=== PATIENT | male | born 1940 | race Hispanic/Latino ===

== ENCOUNTER 2018-02-02 17:32 | Inpatient (IN) | payer MEDICARE, BC ==
[2018-02-02 21:09] VITALS: BMI 22.1
--- NOTE | 2018-02-02 22:14 | CP.PCM.HP ---
History of Present Illness - History of Present Illness History of Present Illness: Jessicatim Narciso Chief Complaint: multiple falls The patient was seen and evaluated in the Rehab Unit HPI: The hx is obtained from the patient and after review of the medical records. The patient was transferred from the [facility] to the [facility] for Acute Rehabilitation. He is a 77 years old male with hx of Parkinson's Disease who was admitted to the [facility] on 01/31/18 because of frequent falls at home, approximately 20 falls in January, with his last fall he had right hip and back injuries. no fracture was found. He was evaluated by Neurology Dr Juares and his medication was reviewed and rearranged. 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 absent: Anorexia, Chills, Fever, Headache, Weakness - EENT Eyes: Requires Corrective Lenses. absent: Floaters, Itchy Eyes, Sees Flashes Ears: absent: Decreased Hearing, Ear Discharge, Ear Pain, Tinnitus Nose/Mouth/Throat: absent: Epistaxis, Nasal Congestion, Nasal Discharge, Sinus Pain, Sinus Pressure - Cardiovascular Cardiovascular: absent: Chest Pain, Dyspnea, Edema - Respiratory Respiratory: absent: Cough, Dyspnea, Wheezing, Stridor, Chest Congestion - Gastrointestinal Gastrointestinal: Constipation. absent: Abdominal Pain, Diarrhea, Nausea, Vomiting - Genitourinary Genitourinary: absent: Dysuria, Flank Pain, Hematuria, Urinary Frequency - Musculoskeletal Musculoskeletal: Back Pain Additional comments: Pain to both lower extrmities - Integumentary Integumentary: absent: Pruritus, Rash, Skin Ulcer, Sores, Striae, Swelling - Neurological Neurological: Dizziness. absent: Confusion, Focal Weakness, Headaches - Psychiatric Psychiatric: Anxiety. absent: Depression, Panic Attacks - Endocrine Endocrine: absent: Palpitations, Polydipsia, Polyphagia, Polyuria - Hematologic/Lymphatic Hematologic: absent: Easy Bleeding, Easy Bruising Past Patient History - Past Medical History & Family History Past Medical History?: Yes - Past Social History Smoking Status: Former Smoker Chewing Tobacco Use: No Cigar Use: No Alcohol: None Drugs: Denies Home Situation {Lives}: With Family - CARDIAC Hx Cardiac Disorders: Yes Other/Comment: CAD. Orthostatic hypotension - PULMONARY Hx Respiratory Disorders: No - NEUROLOGICAL Hx Parkinson's Disease: Yes - HEENT Hx HEENT Problems: No - RENAL Hx Chronic Kidney Disease: No - ENDOCRINE/METABOLIC Hx Endocrine Disorders: No - HEMATOLOGICAL/ONCOLOGICAL Hx Blood Disorders: No - INTEGUMENTARY Hx Dermatological Problems: No - MUSCULOSKELETAL/RHEUMATOLOGICAL Hx Spinal Stenosis: Yes - GASTROINTESTINAL Hx Gastrointestinal Disorders: No - GENITOURINARY/GYNECOLOGICAL Hx Genitourinary Disorders: Yes (BPH) - SURGICAL HISTORY Hx Abdominal Aortic Aneurysm Repair: Yes Hx Coronary Stent: Yes - ANESTHESIA Hx Anesthesia: Yes Hx Anesthesia Reactions: No Meds Allergies/Adverse Reactions: Allergies Allergy/AdvReac Type Severity Reaction Status Date / Time codeine Allergy Severe ANAPHYLAXIS Verified 02/02/18 22:05 omeprazole Allergy Severe ANAPHYLAXIS Verified 02/02/18 22:05 Physical Exam - Constitutional Appears: No Acute Distress - Head Exam Head Exam: ATRAUMATIC, NORMAL INSPECTION, NORMOCEPHALIC - Eye Exam Eye Exam: EOMI, Normal appearance Pupil Exam: NORMAL ACCOMODATION, PERRL - ENT Exam ENT Exam: Mucous Membranes Moist, Normal Exam, Normal External Ear Exam - Neck Exam Neck exam: Positive for: Full Rom, Normal Inspection. Negative for: Lymphadenopathy, Tenderness - Respiratory Exam Respiratory Exam: Clear to Auscultation Bilateral. absent: Rales, Rhonchi, Wheezes - Cardiovascular Exam Cardiovascular Exam: REGULAR RHYTHM, RRR, +S1, +S2 - GI/Abdominal Exam GI & Abdominal Exam: Normal Bowel Sounds, Soft. absent: Mass, Organomegaly, Tenderness - Rectal Exam Rectal Exam: Deferred - Extremities Exam Extremities exam: Positive for: normal inspection. Negative for: full ROM, pedal edema - Back Exam Back exam: NORMAL INSPECTION. absent: CVA tenderness (L), CVA tenderness (R) - Neurological Exam Neurological exam: Alert, CN II-XII Intact, Oriented x3, Reflexes Normal - Psychiatric Exam Psychiatric exam: Normal Affect, Normal Mood - Skin Skin Exam: Dry, Intact, Normal Color, Warm Results - Impressions Impression: EKG 01/31/18 NSR 61/min - Imaging and Cardiology Chest x-ray Status: Image reviewed by me, Report reviewed by me Additional comment: CXR 01/31/18 Chronic patchy infiltrate LLL Right Hip & Pelvis X Ray Status: Report reviewed by me Additional comment: No fracture Assessment & Plan - Assessment and Plan (Free Text) Assessment: #. Progressive Parkinson's Disease #. GERD #. CAD Plan: 77 years old male with hx of Parkinson's Disease, admitted to the [facility] on 01/31/18 because of frequent falls at home. He was evaluated by Neurology Dr Juares and is transferred to the [facility] for continued treatment.. #. Progressive Parkinson's Disease - Consult Dr Juares Neurology - Consult physiatry - Sinemet - Amantadine - CMP #. GERD - Pantoprazole #. CAD - ASA - lipid profile #. DVT prophylaxis with SCD and Lovenox - INR/PTT #. Code Status: Full - Date & Time Date: 02/02/18 Time: 22:14
[2018-02-03] MEDS: Carbidopa/Levodopa 50/200 CR PO SCH (06:02)
[2018-02-03 06:35] LABS: BASO # 0.1 K/uL (0.0-0.2); BASO % 1.1 % (0.0-2.0); EOS # 0.2 K/uL (0.0-0.7); EOS % 2.6 % (0.0-4.0); HEMOGLOBIN 12.6 g/dL (12.0-18.0); LYMPH # 1.2 K/uL (1.0-4.3); LYMPH % 18.5 % (20.0-40.0); MEAN CELL VOLUME 90.5 fl (80.0-94.0); MEAN CORPUSCULAR HEMOGLOBIN 29.1 pg (27.0-31.0); MEAN CORPUSCULAR HGB CONC 32.2 g/dL (33.0-37.0); MEAN PLATELET VOLUME 8.5 fl (7.2-11.7); MONO # 0.5 K/uL (0.0-0.8); MONO % 8.2 % (0.0-10.0); NEUT # 4.5 K/uL (1.8-7.0); NEUT % 69.6 % (50.0-75.0); RBC 4.33 Mil/uL (4.40-5.90); RED CELL DISTRIBUTION WIDTH 14.8 % (11.5-14.5); WHITE BLOOD COUNT 6.4 K/uL (4.8-10.8)
[2018-02-03 06:45] LABS: INR 1.1 (0.9-1.2); PARTIAL THROMBOPLASTIN TIME 27.8 Seconds (25.6-37.1); PROTHROMBIN TIME 12.5 Seconds (9.8-13.1)
[2018-02-03 06:47] LABS: ALB/GLOB RATIO 0.9 (1.0-2.1); ALBUMIN 3.5 g/dL (3.5-5.0)
[2018-02-03] MEDS: Enoxaparin 40 mg Syringe SC SCH (08:39)
[2018-02-03] MEDS: Pantoprazole 40 mg EC Tab PO SCH (08:41)
--- NOTE | 2018-02-03 16:58 | CP.PCM.CON ---
History of Present Illness - History of Present Illness History of Present Illness: Dr. Henry PMR consultation on Rafael Hightower, born 1940 who has been admitted to [facility] for acute inpatient rehabilitation following an admission at [facility] secondary to poor balance and safety. He has Parkinson's disease and has numerous falls. Luckily no serious injury to this point. He typically ambulates with a walker. His is reportedly dealing with lung CA. Son is in the building and helpful. He is right hand dominant Review of Systems - Constitutional Constitutional: absent: Anorexia, Chills - EENT Eyes: absent: Blind Spots Ears: absent: Ear Discharge, Ear Pain Nose/Mouth/Throat: absent: Nasal Congestion - Cardiovascular Cardiovascular: absent: Chest Pain - Respiratory Respiratory: absent: Dyspnea - Gastrointestinal Gastrointestinal: absent: Abdominal Pain - Musculoskeletal Musculoskeletal: absent: Joint Swelling - Integumentary Integumentary: absent: Wounds - Neurological Neurological: Numbness (bilateral feet. ), Frequent Falls. absent: Abnormal Movements, Abnormal Speech, Headaches, Vertigo - Psychiatric Psychiatric: absent: Anxiety Past Patient History - Past Medical History & Family History Past Medical History?: Yes - Past Social History Smoking Status: Former Smoker Alcohol: Occasional Home Situation {Lives}: With Family (no steps) - CARDIAC Hx Cardiac Disorders: Yes Hx Hypertension: Yes Other/Comment: CAD. Orthostatic hypotension - PULMONARY Hx Respiratory Disorders: No - NEUROLOGICAL Hx Parkinson's Disease: Yes - HEENT Hx HEENT Problems: No - RENAL Hx Chronic Kidney Disease: No - ENDOCRINE/METABOLIC Hx Endocrine Disorders: No - HEMATOLOGICAL/ONCOLOGICAL Hx Blood Disorders: No Hx Blood Transfusions: No - INTEGUMENTARY Hx Dermatological Problems: No Other/Comment: With multiple bruises from fall - MUSCULOSKELETAL/RHEUMATOLOGICAL Hx Falls: Yes (20 x last month) Hx Spinal Stenosis: Yes Other/Comment: Lumbosacral radiculopathy secondary to spinal stenosis - GASTROINTESTINAL Hx Gastrointestinal Disorders: No - GENITOURINARY/GYNECOLOGICAL Hx Genitourinary Disorders: Yes Hx Prostate Problems: Yes (BPH) - PSYCHIATRIC Hx Psychophysiologic Disorder: Yes Hx Anxiety: Yes Hx Substance Use: No - SURGICAL HISTORY Hx Abdominal Aortic Aneurysm Repair: Yes (3 stents) Hx Cholecystectomy: Yes Hx Coronary Stent: Yes Other/Comment: lumbosacral spinal surgery with hardware placement. - ANESTHESIA Hx Anesthesia: Yes Hx Anesthesia Reactions: No Meds Allergies/Adverse Reactions: Allergies Allergy/AdvReac Type Severity Reaction Status Date / Time codeine Allergy Severe ANAPHYLAXIS Verified 02/02/18 22:05 omeprazole Allergy Severe ANAPHYLAXIS Verified 02/02/18 22:05 omeprazole magnesium Allergy Severe ANAPHYLAXIS Uncoded 02/03/18 08:10 - Medications Medications: Current Medications Amantadine HCl (Amantadine 100 Mg Cap) 100 mg PO DAILY [facility] Last Admin: 02/03/18 08:40 Dose: 100 mg Aspirin (Aspirin Chewable) 81 mg PO DAILY [facility] Last Admin: 02/03/18 08:40 Dose: 81 mg Carbidopa/Levodopa (Sinemet Cr) 1 tab PO DAILY@0700 [facility] Last Admin: 02/03/18 06:02 Dose: 1 tab Carbidopa/Levodopa (Sinemet) 1 tab PO DAILY@1500 [facility] Last Admin: 02/03/18 15:10 Dose: 1 tab Carbidopa/Levodopa (Sinemet) 2 tab PO DAILY@1330 [facility] Last Admin: 02/03/18 13:18 Dose: 2 tab Enoxaparin Sodium (Lovenox) 40 mg SC DAILY [facility] PRN Reason: Protocol Last Admin: 02/03/18 08:39 Dose: 40 mg Lorazepam (Ativan) 2 mg PO HS PRN PRN Reason: Insomnia Last Admin: 02/02/18 22:57 Dose: 2 mg Pantoprazole Sodium (Protonix Ec Tab) 40 mg PO DAILY [facility] Last Admin: 02/03/18 08:41 Dose: 40 mg Quetiapine Fumarate (Seroquel) 25 mg PO HS PRN PRN Reason: Agitation Physical Exam - Constitutional Appears: Non-toxic, No Acute Distress - Head Exam Head Exam: ATRAUMATIC, NORMAL INSPECTION, NORMOCEPHALIC - Eye Exam Eye Exam: EOMI - ENT Exam ENT Exam: Mucous Membranes Moist - Respiratory Exam Respiratory Exam: NORMAL BREATHING PATTERN - Cardiovascular Exam Cardiovascular Exam: REGULAR RHYTHM - GI/Abdominal Exam GI & Abdominal Exam: Normal Bowel Sounds. absent: Distended - Extremities Exam Extremities exam: Negative for: calf tenderness, joint swelling - Psychiatric Exam Psychiatric exam: Normal Affect, Normal Mood - Skin Skin Exam: Warm Results - Vital Signs Recent Vital Signs: Last Vital Signs Temp 97.4 F L 02/03/18 10:00 Pulse 81 02/03/18 10:00 Resp 19 02/03/18 10:00 BP 109/71 02/03/18 10:00 Pulse Ox 98 02/03/18 10:00 - Labs Result Diagrams: 02/03/18 05:10 02/03/18 05:10 Labs: Laboratory Results - last 24 hr 02/03/18 02/03/18 02/03/18 05:10 05:10 05:10 WBC 6.4 RBC 4.33 L Hgb 12.6 Hct 39.2 MCV 90.5 MCH 29.1 MCHC 32.2 L RDW 14.8 H Plt Count 216 MPV 8.5 Neut % (Auto) 69.6 Lymph % (Auto) 18.5 L [place] % (Auto) 8.2 Eos % (Auto) 2.6 Baso % (Auto) 1.1 Neut # (Auto) 4.5 Lymph # (Auto) 1.2 [place] # (Auto) 0.5 Eos # (Auto) 0.2 Baso # (Auto) 0.1 PT 12.5 INR 1.1 APTT 27.8 Sodium 143 Potassium 4.2 Chloride 103 Carbon Dioxide 29 Anion Gap 15 BUN 30 H Creatinine 1.4 Est GFR ( Amer) 59 Est GFR (Non-Af Amer) 49 Random Glucose 87 Calcium 9.0 Total Bilirubin 0.7 AST 24 ALT 30 Alkaline Phosphatase 105 Total Protein 7.5 Albumin 3.5 Globulin 4.0 H Albumin/Globulin Ratio 0.9 L Triglycerides 155 H Cholesterol 147 LDL Cholesterol Direct 84 HDL Cholesterol 29 L Assessment & Plan - Assessment and Plan (Free Text) Assessment: PT/OT to continue to help increase functional independence Team conference for d/c planning Pain: controlled Vascular: no evidence of DVT GI: No evidence of constipation or diarrhea Patient is an excellent acute rehabilitation candidate and will have focused PT , OT and recreational therapy to help facilitate a safe and appropriate d/c plan Impairment code 03.2
--- NOTE | 2018-02-03 17:24 | PCM.OPOC ---
Physiatry Overall Plan of Care - Overall Plan of Care Estimated Length of Stay in Weeks: 3 Rehab Impairment: Mobility, Gait, Balance, Coordination Etiologic Diagnosis: Other (Parkinson's Disease exacerbation) - Anticipated Interventions Physical Therapy:: Yes Occupational Therapy:: Yes Speech Therapy:: No Recreational Therapy:: Yes - Therapy Goals Bed Mobility: Supervision Ambulation: Supervision Functional Positional Changes:: Supervision - Discharge Plan Identification of Barriers to Discharge: Home Situation Discharge Destination: Home
[2018-02-04] MEDS: Carbidopa/Levodopa 50/200 CR PO SCH (06:53)
[2018-02-04] MEDS: Pantoprazole 40 mg EC Tab PO SCH (08:46)
[2018-02-04] MEDS: Enoxaparin 40 mg Syringe SC SCH (08:46)
--- NOTE | 2018-02-04 10:29 | CP.PCM.CON ---
History of Present Illness - History of Present Illness History of Present Illness: Mr. 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 He has PSH: Coronary stents X3; Cholecystectomy; AAA repair; lumbosacrial spinal surgery; and SH: Formal Smoker ; denies Alcohol use, illegal drug use, and live at home with family. He was transferred from [facility] to the [facility] because of frequent falls at home, approximately 20 falls in January, with his last fall he had right hip and back injuries. no fracture was found. He was seen and evaluated by Neurologist (Dr Juares) and his medication was reviewed and rearranged. Review of Systems - Review of Systems All systems: reviewed and no additional remarkable complaints except Past Patient History - Past Medical History & Family History Past Medical History?: Yes - Past Social History Smoking Status: Former Smoker Alcohol: Occasional Home Situation {Lives}: With Family (no steps) - CARDIAC Hx Cardiac Disorders: Yes Hx Hypertension: Yes Other/Comment: CAD. Orthostatic hypotension - PULMONARY Hx Respiratory Disorders: No - NEUROLOGICAL Hx Parkinson's Disease: Yes - HEENT Hx HEENT Problems: No - RENAL Hx Chronic Kidney Disease: No - ENDOCRINE/METABOLIC Hx Endocrine Disorders: No - HEMATOLOGICAL/ONCOLOGICAL Hx Blood Disorders: No Hx Blood Transfusions: No - INTEGUMENTARY Hx Dermatological Problems: No Other/Comment: With multiple bruises from fall - MUSCULOSKELETAL/RHEUMATOLOGICAL Hx Falls: Yes (20 x last month) Hx Spinal Stenosis: Yes Other/Comment: Lumbosacral radiculopathy secondary to spinal stenosis - GASTROINTESTINAL Hx Gastrointestinal Disorders: No - GENITOURINARY/GYNECOLOGICAL Hx Genitourinary Disorders: Yes Hx Prostate Problems: Yes (BPH) - PSYCHIATRIC Hx Psychophysiologic Disorder: Yes Hx Anxiety: Yes Hx Substance Use: No - SURGICAL HISTORY Hx Abdominal Aortic Aneurysm Repair: Yes (3 stents) Hx Cholecystectomy: Yes Hx Coronary Stent: Yes Other/Comment: lumbosacral spinal surgery with hardware placement. - ANESTHESIA Hx Anesthesia: Yes Hx Anesthesia Reactions: No Meds Allergies/Adverse Reactions: Allergies Allergy/AdvReac Type Severity Reaction Status Date / Time codeine Allergy Severe ANAPHYLAXIS Verified 02/02/18 22:05 omeprazole Allergy Severe ANAPHYLAXIS Verified 02/02/18 22:05 omeprazole magnesium Allergy Severe ANAPHYLAXIS Uncoded 02/03/18 08:10 - Medications Medications: Current Medications Amantadine HCl (Amantadine 100 Mg Cap) 100 mg PO DAILY [facility] Last Admin: 02/04/18 08:45 Dose: 100 mg Aspirin (Aspirin Chewable) 81 mg PO DAILY [facility] Last Admin: 02/04/18 08:46 Dose: 81 mg Carbidopa/Levodopa (Sinemet Cr) 1 tab PO DAILY@0700 [facility] Last Admin: 02/04/18 06:53 Dose: 1 tab Carbidopa/Levodopa (Sinemet) 1 tab PO DAILY@1500 [facility] Last Admin: 02/03/18 15:10 Dose: 1 tab Carbidopa/Levodopa (Sinemet) 2 tab PO DAILY@1330 [facility] Last Admin: 02/03/18 13:18 Dose: 2 tab Enoxaparin Sodium (Lovenox) 40 mg SC DAILY [facility] PRN Reason: Protocol Last Admin: 02/04/18 08:46 Dose: 40 mg Lorazepam (Ativan) 2 mg PO HS PRN PRN Reason: Insomnia Stop: 02/10/18 17:00 Last Admin: 02/03/18 22:10 Dose: 2 mg Pantoprazole Sodium (Protonix Ec Tab) 40 mg PO DAILY [facility] Last Admin: 02/04/18 08:46 Dose: 40 mg Quetiapine Fumarate (Seroquel) 25 mg PO HS PRN PRN Reason: Agitation Physical Exam - Constitutional Appears: No Acute Distress - Head Exam Head Exam: NORMAL INSPECTION - Eye Exam Eye Exam: EOMI, Normal appearance, PERRL - ENT Exam ENT Exam: Mucous Membranes Moist, Normal Exam - Respiratory Exam Respiratory Exam: Clear to Auscultation Bilateral, NORMAL BREATHING PATTERN - Cardiovascular Exam Cardiovascular Exam: +S1, +S2 - GI/Abdominal Exam GI & Abdominal Exam: Normal Bowel Sounds, Soft. absent: Tenderness - Extremities Exam Extremities exam: Positive for: normal inspection - Neurological Exam Neurological exam: Abnormal Gait, Alert, CN II-XII Intact, Oriented x3 - Expanded Neurological Exam Expanded Patient oriented to: person, place, time Cranial nerves: EOM's Intact: Normal, Facial [place] w/Forehead Movement: Normal , Facial Sensation: Normal, Gag Reflex: Normal, Nystagmus: Normal Cerebellar Function: Finger to Nose: Abnormal Left, Abnormal Right (with noted trembling of the fingers) Sensory exam: Lower Extremity 2 Point Discrimination: Normal, Lower Extremity Light Touch: Normal, Lower Extremity Pin Prick: Normal, Lower Extremity Temperature: Normal, Upper Extremity 2 Point Discrimination: Normal, Upper Extremity Light Touch: Normal, Upper Extremity Pin Prick: Normal, Upper Extremity Temperature: Normal Neuro motor strength exam: Left Upper Extremity: 4, Right Upper Extremity: 4, Left Lower Extremity: 3, Right Lower Extremity: 3 Results - Vital Signs Recent Vital Signs: Last Vital Signs Temp 98.0 F 02/04/18 08:46 Pulse 80 02/04/18 08:46 Resp 91 H 02/04/18 08:46 BP 108/74 02/04/18 08:46 Pulse Ox 97 02/04/18 08:46 - Labs Result Diagrams: 02/03/18 05:10 02/03/18 05:10 Assessment & Plan (1) Parkinsons disease Assessment and Plan: This is a 77 years old male with hx of Parkinson's Disease, admitted to the [facility] on 01/31/18 because of frequent falls at home. He was evaluated by Neurology Dr Juares and is transferred to the [facility] for continued treatment. Case discussed with Dr. Juares, recommend the followin. Continue same dose of sinemet ( I tab at 0700, 2 tabs at 13:30 and 1 tab at 1500). 2. Continue same dose of Amantadine 100 mg PO daily 3. PT,OT eval and treat. 4. monitor CMP Status: Acute
[2018-02-05] MEDS: Carbidopa/Levodopa 50/200 CR PO SCH (06:50)
[2018-02-05] MEDS: Pantoprazole 40 mg EC Tab PO SCH (08:31)
[2018-02-05] MEDS: Enoxaparin 40 mg Syringe SC SCH (08:32)
--- NOTE | 2018-02-05 14:08 | CP.PCM.PN ---
Subjective - Date & Time of Evaluation Date of Evaluation: 02/05/18 Time of Evaluation: 11:20 - Subjective Subjective: Patient seen and examined. Continue to have orthostatic hypotension and unable to continue therapy because of it. Objective - Vital Signs/Intake and Output Vital Signs (last 24 hours): Temp Pulse Resp BP Pulse Ox 97.7 F 76 20 134/91 H 98 02/05/18 07:00 02/05/18 07:00 02/05/18 07:00 02/05/18 07:00 02/05/18 07:00 - Medications Medications: Current Medications Amantadine HCl (Amantadine 100 Mg Cap) 100 mg PO DAILY [facility] Last Admin: 02/05/18 08:32 Dose: 100 mg Aspirin (Aspirin Chewable) 81 mg PO DAILY [facility] Last Admin: 02/05/18 08:31 Dose: 81 mg Carbidopa/Levodopa (Sinemet Cr) 1 tab PO DAILY@0700 [facility] Last Admin: 02/05/18 06:50 Dose: 1 tab Carbidopa/Levodopa (Sinemet) 1 tab PO DAILY@1500 [facility] Last Admin: 02/04/18 15:16 Dose: 1 tab Carbidopa/Levodopa (Sinemet) 2 tab PO DAILY@1330 [facility] Last Admin: 02/05/18 12:49 Dose: 2 tab Enoxaparin Sodium (Lovenox) 40 mg SC DAILY [facility] PRN Reason: Protocol Last Admin: 02/05/18 08:32 Dose: 40 mg Lorazepam (Ativan) 2 mg PO HS PRN PRN Reason: Insomnia Stop: 02/10/18 17:00 Last Admin: 02/04/18 22:12 Dose: 2 mg Pantoprazole Sodium (Protonix Ec Tab) 40 mg PO DAILY [facility] Last Admin: 02/05/18 08:31 Dose: 40 mg Quetiapine Fumarate (Seroquel) 25 mg PO HS PRN PRN Reason: Agitation - Labs Labs: 02/03/18 05:10 02/03/18 05:10 PT 12.5 Seconds (9.8-13.1) 02/03/18 05:10 INR 1.1 (0.9-1.2) 02/03/18 05:10 APTT 27.8 Seconds (25.6-37.1) 02/03/18 05:10 - Constitutional Appears: No Acute Distress - Head Exam Head Exam: ATRAUMATIC - Eye Exam Eye Exam: absent: Scleral icterus - ENT Exam ENT Exam: Mucous Membranes Moist - Neck Exam Neck Exam: absent: Meningismus - Respiratory Exam Respiratory Exam: absent: Rales, Rhonchi, Wheezes, Respiratory Distress - Cardiovascular Exam Cardiovascular Exam: REGULAR RHYTHM, +S1, +S2 - GI/Abdominal Exam GI & Abdominal Exam: Soft. absent: Tenderness - Rectal Exam Rectal Exam: Deferred - Neurological Exam Neurological Exam: Alert, Oriented x3 - Psychiatric Exam Psychiatric exam: Normal Affect - Skin Skin Exam: Dry, Intact Assessment and Plan - Assessment and Plan (Free Text) Assessment: 77 yo male with history of Parkinson's Disease, admitted at [facility] on 01/31/18 because of frequent falls. He was transferred to [facility] and admitted at Acute Rehab for continuation of therapy. 1. Parkinson's Disease continue Sinemet and Amantadine Dr Juares on neuro consult 2. Orthostatic Hypotension maybe caused of frequent falls cardiology consult with Dr Singh may need Fludcortisone for orthostatic hypotension 3. CAD continue ASA 4. DVT prophylaxis continue Lovenox
--- NOTE | 2018-02-05 18:33 | CP.PCM.PN ---
Subjective - Date & Time of Evaluation Date of Evaluation: 02/05/18 Time of Evaluation: 18:30 - Subjective Subjective: Mr. Hightower was seen and examined at the bedside. He is alert, oriented in all spheres. He denies any headache, dizziness, still claims of lower extremities weakness. He is able to move all extremities spontaneously with no tremors noted in his extremities. According to staff, the patient has been hypotensive prior to therapy with orthostatic vital signs remains the same. Alexander stocking, gary wrap and abdominal binder applied by therapist and systolic blood pressure post therapy was 112 mm/ hg. Cardiology was consulted. There was no untoward events overnight. Objective - Vital Signs/Intake and Output Vital Signs (last 24 hours): Temp Pulse Resp BP Pulse Ox 97.7 F 76 20 134/91 H 98 02/05/18 07:00 02/05/18 07:00 02/05/18 07:00 02/05/18 07:00 02/05/18 07:00 - Medications Medications: Current Medications Amantadine HCl (Amantadine 100 Mg Cap) 100 mg PO DAILY [facility] Last Admin: 02/05/18 08:32 Dose: 100 mg Aspirin (Aspirin Chewable) 81 mg PO DAILY [facility] Last Admin: 02/05/18 08:31 Dose: 81 mg Carbidopa/Levodopa (Sinemet Cr) 1 tab PO DAILY@0700 [facility] Last Admin: 02/05/18 06:50 Dose: 1 tab Carbidopa/Levodopa (Sinemet) 1 tab PO DAILY@1500 [facility] Last Admin: 02/05/18 14:52 Dose: 1 tab Carbidopa/Levodopa (Sinemet) 2 tab PO DAILY@1330 [facility] Last Admin: 02/05/18 12:49 Dose: 2 tab Enoxaparin Sodium (Lovenox) 40 mg SC DAILY [facility] PRN Reason: Protocol Last Admin: 02/05/18 08:32 Dose: 40 mg Lorazepam (Ativan) 2 mg PO HS PRN PRN Reason: Insomnia Stop: 02/10/18 17:00 Last Admin: 02/04/18 22:12 Dose: 2 mg Pantoprazole Sodium (Protonix Ec Tab) 40 mg PO DAILY [facility] Last Admin: 02/05/18 08:31 Dose: 40 mg Quetiapine Fumarate (Seroquel) 25 mg PO HS PRN PRN Reason: Agitation - Labs Labs: 02/03/18 05:10 02/03/18 05:10 PT 12.5 Seconds (9.8-13.1) 02/03/18 05:10 INR 1.1 (0.9-1.2) 02/03/18 05:10 APTT 27.8 Seconds (25.6-37.1) 02/03/18 05:10 - Constitutional Appears: No Acute Distress - Head Exam Head Exam: NORMAL INSPECTION - Extremities Exam Extremities Exam: Full ROM - Neurological Exam Neurological Exam: Alert, Awake, CN II-XII Intact, Oriented x3 Neuro motor strength exam: Left Upper Extremity: 4, Right Upper Extremity: 4, Left Lower Extremity: 3, Right Lower Extremity: 3 Additional comments: Alert, oriented, follows commands with less tremors appreciated in his extremities. Assessment and Plan (1) Parkinsons disease Assessment & Plan: Case discussed with Dr. Womack, continue all current medical, physical, and occupational therapies. Recommend to follow any orders from cardiology. Status: Acute
[2018-02-06 06:21] LABS: HEMOGLOBIN 12.2 g/dL (12.0-18.0); MEAN CELL VOLUME 90.4 fl (80.0-94.0); MEAN CORPUSCULAR HEMOGLOBIN 29.9 pg (27.0-31.0); MEAN CORPUSCULAR HGB CONC 33.1 g/dL (33.0-37.0); RBC 4.08 Mil/uL (4.40-5.90); RED CELL DISTRIBUTION WIDTH 14.7 % (11.5-14.5); WHITE BLOOD COUNT 8.6 K/uL (4.8-10.8)
[2018-02-06] MEDS: Carbidopa/Levodopa 50/200 CR PO SCH (07:25)
[2018-02-06] MEDS: Enoxaparin 40 mg Syringe SC SCH (09:00)
[2018-02-06] MEDS: Pantoprazole 40 mg EC Tab PO SCH (09:01)
--- NOTE | 2018-02-06 09:14 | CP.PCM.CON ---
History of Present Illness - History of Present Illness History of Present Illness: this 77-year-old man admitted to the rehabilitation unit of this hospital displays significant orthostatic hypotension and this consultation was requested. The patient has a long history of Parkinson disease and admits to having low blood pressure recorded on multiple occasions. He denies any history of blackout but reports lightheadedness often. He denies any history of taking diuretics. Has no history of hypertension or diabetes or prior myocardial infarction or symptoms of congestive cardiac failure. The patient has been taking Sinemet for the treatment of his Parkinson's disease. Physical examination shows an elderly man who is alert and awake and coherent. He has fine tremors due to Parkinson's disease. His respiratory rate was 14 breaths per minute and his heart rate was 74 bpm and regular. His blood pressure lying down in bed was 96/60 mmHg which on sitting up was 80/60 mmHg and upon standing up was 64/40 mmHg. The patient complained of lightheadedness upon standing up. There was no fainting. His jugular venous pressure was not elevated and there was no edema hour his lower extremity. Pedal pulses were well felt. His extremities were warm and his nailbeds are pink. There was no central or peripheral cyanosis. There was no clubbing. The first and second heart sounds were normal. There was no murmur or gallop. There were no rales. His abdomen was soft liver and spleen are not palpable. His electric cardiogram showed sinus rhythm with left axis deviation but otherwise a normal pattern. His lab data was noted. his BUN which was 30 mg percent on january was 41 mg today. His electrolytes were normal. 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 (such as autonomic dysfunction associated with Parkinson disease.) I have recommended intravenous normal saline in at at [place] to expand his intravascular volume. I have instructed the nurses to avoid having patient stand up and exercise when his right systolic blood pressure drops below 90 mmHg. Sinemet may also contribute to orthostatic hypotension. Past Patient History - Past Medical History & Family History Past Medical History?: Yes - Past Social History Smoking Status: Former Smoker Alcohol: Occasional Home Situation {Lives}: With Family (no steps) - CARDIAC Hx Cardiac Disorders: Yes - PULMONARY Hx Respiratory Disorders: No - NEUROLOGICAL Hx Parkinson's Disease: Yes - HEENT Hx HEENT Problems: No - RENAL Hx Chronic Kidney Disease: No - ENDOCRINE/METABOLIC Hx Endocrine Disorders: No - HEMATOLOGICAL/ONCOLOGICAL Hx Blood Disorders: No Hx Blood Transfusions: No - INTEGUMENTARY Hx Dermatological Problems: No Other/Comment: With multiple bruises from fall - MUSCULOSKELETAL/RHEUMATOLOGICAL Hx Falls: Yes (20 x last month) Hx Spinal Stenosis: Yes Other/Comment: Lumbosacral radiculopathy secondary to spinal stenosis - GASTROINTESTINAL Hx Gastrointestinal Disorders: No - GENITOURINARY/GYNECOLOGICAL Hx Genitourinary Disorders: Yes Hx Prostate Problems: Yes (BPH) - PSYCHIATRIC Hx Psychophysiologic Disorder: Yes Hx Anxiety: Yes Hx Substance Use: No - SURGICAL HISTORY Hx Abdominal Aortic Aneurysm Repair: Yes (3 stents) Hx Cholecystectomy: Yes Hx Coronary Stent: Yes Other/Comment: lumbosacral spinal surgery with hardware placement. - ANESTHESIA Hx Anesthesia: Yes Hx Anesthesia Reactions: No Meds Allergies/Adverse Reactions: Allergies Allergy/AdvReac Type Severity Reaction Status Date / Time codeine Allergy Severe ANAPHYLAXIS Verified 02/02/18 22:05 omeprazole Allergy Severe ANAPHYLAXIS Verified 02/02/18 22:05 omeprazole magnesium Allergy Severe ANAPHYLAXIS Uncoded 02/03/18 08:10 - Medications Medications: Current Medications Amantadine HCl (Amantadine 100 Mg Cap) 100 mg PO DAILY [facility] Last Admin: 02/06/18 09:01 Dose: 100 mg Aspirin (Aspirin Chewable) 81 mg PO DAILY [facility] Last Admin: 02/06/18 09:01 Dose: 81 mg Carbidopa/Levodopa (Sinemet Cr) 1 tab PO DAILY@0700 [facility] Last Admin: 02/06/18 07:25 Dose: 1 tab Carbidopa/Levodopa (Sinemet) 1 tab PO DAILY@1500 [facility] Last Admin: 02/05/18 14:52 Dose: 1 tab Carbidopa/Levodopa (Sinemet) 2 tab PO DAILY@1330 [facility] Last Admin: 02/05/18 12:49 Dose: 2 tab Enoxaparin Sodium (Lovenox) 40 mg SC DAILY [facility] PRN Reason: Protocol Last Admin: 02/06/18 09:00 Dose: 40 mg Sodium Chloride (Sodium Chloride 0.9%) 1,000 mls @ 50 mls/hr IV .Q20H [facility] Stop: 02/07/18 09:10 Lorazepam (Ativan) 1 mg PO HS PRN PRN Reason: Sleep Last Admin: 02/05/18 21:33 Dose: 1 mg Pantoprazole Sodium (Protonix Ec Tab) 40 mg PO DAILY [facility] Last Admin: 02/06/18 09:01 Dose: 40 mg Quetiapine Fumarate (Seroquel) 25 mg PO HS PRN PRN Reason: Agitation Results - Vital Signs Recent Vital Signs: Last Vital Signs Temp 97.0 F L 02/06/18 08:16 Pulse 89 02/06/18 08:16 Resp 19 02/06/18 08:16 BP 101/60 02/06/18 08:16 Pulse Ox 96 02/06/18 08:16 - Labs Result Diagrams: 02/06/18 05:40 02/06/18 05:40 Labs: Laboratory Results - last 24 hr 02/06/18 02/06/18 05:40 05:40 WBC 8.6 RBC 4.08 L Hgb 12.2 Hct 36.8 MCV 90.4 MCH 29.9 MCHC 33.1 RDW 14.7 H Plt Count 221 Sodium 141 Potassium 4.5 Chloride 103 Carbon Dioxide 25 Anion Gap 18 BUN 41 H Creatinine 1.4 Est GFR ( Amer) 59 Est GFR (Non-Af Amer) 49 Random Glucose 92 Calcium 9.0
[2018-02-06] MEDS: Sodium Chloride 0.9% 1,000 ML IV SCH (09:41)
--- NOTE | 2018-02-06 13:11 | PSY.TMCNF ---
Nursing - Vital Signs Vital Signs (Last 8 hours): Vital Signs 02/06/18 02/06/18 08:16 09:00 Temperature 97.0 F L 97.0 F L Pulse Rate 89 89 Respiratory 19 19 Rate Blood Pressure 101/60 101/60 O2 Sat by Pulse 96 Oximetry Pain: 0 - Precautions: Precautions: Fall Prevention, Cardiac/Pulmonary, Pressure Ulcer - Medications/Other Issues Comment: (+) Orthostatic Hypotension, Seen by Dr.J. Huggins , started on NSS at 500cc/hr, hold therapy today. - Consults Comment: Dr. Henry, Dr. Liz Huggins, Dr. Womack - Toileting Toileting: Minimal Assistance - Bladder Management Bladder Pattern: Normal Voiding Method: Toilet, Urinal Bladder Management: Supervision Frequency of Accidents: 0 - Bowel Management Bowel Pattern: Normal Bowel Management: Supervision Frequency of Accidents: 0 - Transfers Transfers: Minimal Assistance - ADL's ADL's: Moderate Assistance - Patient/Family Teaching Comments: Safety precautions, fall prevention due to Hypotension and Parkinson's - Goals/Time Frame Comments: Per multidisciplinary care plan and goals - Provider Provider: Teagan MOREN RN CRRN Physical Therapy - Bed Mobility Bed Mobility: Verbal Cues, Minimal Assistance - Transfers Wheelchair to Mat: Verbal Cues, Minimal Assistance Sit to Stand: Verbal Cues, Minimal Assistance Comment: vc for hand placement during t/f, martin stand to sit component; incr'd time and max vc/tc needed to complete safely - Ambulation Level of Assistance: Verbal Cues, Minimal Assistance Distance (ft.): 100 Assistive Devices: Rolling Walker Orthoses: w/c prop 10'x 1 w/ CG/min A. difficulty w/ tasks (multiple attempts for spouse to push pt instead of him propelling) Comment: x2 w/ w/c follow. Pt unsteady w/ flexed posture, B early foot flat, narrow HILARIA, shuffling gait, decr B step/stride length, decr'd trunk/pelvic rotation t/o gait cycle Pt w/ brief episodes of Festinating gait and bradykinesia during turns. improved quality of gait noted w/ vc for B heel strike, to stay inside frame of RW and to incr B step length. decr'd steadiness and safety noted w/ turns. PT noted moderate R hip crepitus during gait. R greater trochanter and jairo area are painful to touch - Stair Negotiation Stairs: Level of Assistance: Verbal Cues, Minimal Assistance Number of Stairs: 6 Handrails: Bilateral Stairs: Assistive Devices: Left Handrail, Right Handrail Comment: 4 in steps, step through pattern min A x1. unsteady - Standing Balance Static Stand: Minimal Assistance Dynamic Stand: Moderate Assistance Comment: w/ RW - Pain Pain (assessed during therapy session): 0 - Insight/Carryover Insight/Carryover: Fair - Patient/Family Education Comment: dx related topics, rehab goals, benefits of being OOB, posture, DBE, POC, fxnl mob, balance, benefit of compression, cardiac prec, safety, DME - Assessment/Plan Assessment: 77 yo male admitted to [facility] acute rehab s/p PD Exac. Pt w/ multiple recent falls and presents w/ BLE pain and impaired strength, balance, sensation , activity tolerance, safety awareness, safety and fxnl mob. Skilled PT indicated to address deficits. Pt w/ chronic hx of orthostatic hypotension. Pt displayed improved BP w/ BLE acewrap applied to lower legs on top of TEDS and abdominal binder. Cont'd use recommended to determine effectiveness. - Goals Timeframe: 3 weeks Goals: asc/desc 1 flight -8 in steps w/ 2 HR, mod I step through pattern w/ stable BP. RW 300' mod I w/ stable BP. sit to stand mod I. SPT mod I. bed mob mod I - Provider License Number: [id number] Occupational Therapy - Arousal/Attention/Orientation Patient Orientation: Person, Place, Time, Appropriate to Age, Appropriate to Situation - ADL/IADL Self Feeding: Set-up Help Grooming: Supervision, Set-up Help Dressing-Upper Extremity: Minimal Assistance Dressing-Lower Extremity: Minimal Assistance Comment: pt reports his assists him with ub dressing particularly with donning shirt - Sitting Balance Static Sitting: Independent with upper extremity support Dynamic Sitting: Requires supervision - Transfers Wheelchair to Bed Transfers: Minimal Assistance Toilet Transfers: Minimal Assistance - Wheelchair Management Level of Assistance: Minimal Assistance Distance (ft.): 50 - Upper Extremity Status Right Upper Extremity Comment: WFL Left Upper Extremity Comment: WFL - Pain Pain (assessed during therapy session): 0 - Insight/Carryover Insight/Carryover: Fair - Patient/Family Education Comment: dx related topics, rehab goals, benefits of being OOB, posture, DBE, POC, fxnl mob, balance, benefit of compression, cardiac prec, safety, DME - Assessment/Plan Assessment: 77 yo male admitted to [facility] acute rehab s/p PD Exac. Pt w/ multiple recent falls and presents w/ BLE pain and impaired strength, balance, sensation , activity tolerance, safety awareness, safety and fxnl mob. Skilled PT indicated to address deficits. Pt w/ chronic hx of orthostatic hypotension. Pt displayed improved BP w/ BLE acewrap applied to lower legs on top of TEDS and abdominal binder. Cont'd use recommended to determine effectiveness. - Goals Timeframe: 3 weeks Goals: asc/desc 1 flight -8 in steps w/ 2 HR, mod I step through pattern w/ stable BP. RW 300' mod I w/ stable BP. sit to stand mod I. SPT mod I. bed mob mod I - Provider Therapist: ISA Rios/[facility] - Consult Information Patient on Program: Yes Medical Diagnosis: exacerbation of Parkinson disease Treatment Diagnosis: -moderate voice deficits - Assessment Speech/Articulation Impairment: Moderate - Plan Assessment: 77 yo male admitted to [facility] acute rehab s/p PD Exac. Pt w/ multiple recent falls and presents w/ BLE pain and impaired strength, balance, sensation , activity tolerance, safety awareness, safety and fxnl mob. Skilled PT indicated to address deficits. Pt w/ chronic hx of orthostatic hypotension. Pt displayed improved BP w/ BLE acewrap applied to lower legs on top of TEDS and abdominal binder. Cont'd use recommended to determine effectiveness. - Provider Therapist: Trisha Carrizales License Number: [id number] Recreational Therapy - Participation Participation: Participates in Individual and/or Group Sessions - Attendance Attendance: 3-5 times per week - Activities Leisure Activities: Cards and Games - Socialization Level of Socialization: Initiates/interacts freely with care givers and peer - Diversional Time Diversional Time: likes to play cards, watch television - Assessment Assessment/Plan: 77 yo male admitted to [facility] acute rehab s/p PD Exac. Pt w/ multiple recent falls and presents w/ BLE pain and impaired strength, balance, sensation, activity tolerance, safety awareness, safety and fxnl mob. Skilled PT indicated to address deficits. Pt w/ chronic hx of orthostatic hypotension. Pt displayed improved BP w/ BLE acewrap applied to lower legs on top of TEDS and abdominal binder. Cont'd use recommended to determine effectiveness. - Provider Therapist: Gill lAba, [employer] CHEMIST #[id number] Nutrition - Current Diet Current Diet/ Supplement/ Feedings: Regular ensure plus 8 ounces 2 per day vanila(700 kcal and 26 grams of protein) - Appetite Percent Meal Consumed: 50-74% - Comments Comments: Safety precautions, fall prevention due to Hypotension and Parkinson's - Assessment/Goals/Time Frame Assessment/Goals/Time Frame: (+) Orthostatic Hypotension, Seen by Dr.J. Huggins , started on NSS at 500cc/hr, hold therapy today. - Provider Provider: Veronica Bah RD Case Management - Discharge Plan Discharge Plan: Home with significant other/family Rehabilitation Plan - Treatment Plan Treatment Plan: Physical Therapy, Occupational Therapy, Speech, Dietary, Patient /Family Education - Discharge Plan Estimated Date of Discharge: 02/16/18 Discharge to: Home (Will extend a few days given problems with orthostasis)
--- NOTE | 2018-02-06 13:58 | CP.PCM.PN ---
Subjective - Date & Time of Evaluation Date of Evaluation: 02/06/18 Time of Evaluation: 13:57 - Subjective Subjective: Patient seen in the room with present no sob/cp had a decrease in BP on fluids now consider dustinf usually with low BP looking to extend stay a few more days given his medical issues that have curtailed therapies Objective - Vital Signs/Intake and Output Vital Signs (last 24 hours): Temp Pulse Resp BP Pulse Ox 97.0 F L 89 19 101/60 96 02/06/18 09:00 02/06/18 09:00 02/06/18 09:00 02/06/18 09:00 02/06/18 08:16 - Medications Medications: Current Medications Amantadine HCl (Amantadine 100 Mg Cap) 100 mg PO DAILY [facility] Last Admin: 02/06/18 09:01 Dose: 100 mg Aspirin (Aspirin Chewable) 81 mg PO DAILY [facility] Last Admin: 02/06/18 09:01 Dose: 81 mg Carbidopa/Levodopa (Sinemet Cr) 1 tab PO DAILY@0700 [facility] Last Admin: 02/06/18 07:25 Dose: 1 tab Carbidopa/Levodopa (Sinemet) 1 tab PO DAILY@1500 [facility] Last Admin: 02/05/18 14:52 Dose: 1 tab Carbidopa/Levodopa (Sinemet) 2 tab PO DAILY@1330 [facility] Last Admin: 02/06/18 12:43 Dose: 2 tab Enoxaparin Sodium (Lovenox) 40 mg SC DAILY [facility] PRN Reason: Protocol Last Admin: 02/06/18 09:00 Dose: 40 mg Sodium Chloride (Sodium Chloride 0.9%) 1,000 mls @ 50 mls/hr IV .Q20H [facility] Stop: 02/07/18 09:10 Last Admin: 02/06/18 09:41 Dose: 50 mls/hr Lorazepam (Ativan) 1 mg PO HS PRN PRN Reason: Sleep Last Admin: 02/05/18 21:33 Dose: 1 mg Pantoprazole Sodium (Protonix Ec Tab) 40 mg PO DAILY [facility] Last Admin: 02/06/18 09:01 Dose: 40 mg Quetiapine Fumarate (Seroquel) 25 mg PO HS PRN PRN Reason: Agitation - Labs Labs: 02/06/18 05:40 02/06/18 05:40 PT 12.5 Seconds (9.8-13.1) 02/03/18 05:10 INR 1.1 (0.9-1.2) 02/03/18 05:10 APTT 27.8 Seconds (25.6-37.1) 02/03/18 05:10
--- NOTE | 2018-02-06 17:44 | CP.PCM.PN ---
Subjective - Date & Time of Evaluation Date of Evaluation: 02/06/18 Time of Evaluation: 17:44 - Subjective Subjective: Mr. Hightower was seen and examined at the bedside. He is alert, oriented in all spheres. He denies any headache, dizziness, still claims of lower extremities weakness. He is able to move all extremities spontaneously with no tremors noted in his extremities. According to staff, the patient has been hypotensive standing position and blood pressure normalize with lying position on Alexander stocking, and BUn 43. He is currently receiving IVF for hydration purposes. He further claims of being hypotensive for most of his life.There was no untoward events overnight. Objective - Vital Signs/Intake and Output Vital Signs (last 24 hours): Temp Pulse Resp BP Pulse Ox 97.0 F L 89 19 101/60 96 02/06/18 09:00 02/06/18 09:00 02/06/18 09:00 02/06/18 09:00 02/06/18 08:16 - Medications Medications: Current Medications Amantadine HCl (Amantadine 100 Mg Cap) 100 mg PO DAILY [facility] Last Admin: 02/06/18 09:01 Dose: 100 mg Aspirin (Aspirin Chewable) 81 mg PO DAILY [facility] Last Admin: 02/06/18 09:01 Dose: 81 mg Carbidopa/Levodopa (Sinemet Cr) 1 tab PO DAILY@0700 [facility] Last Admin: 02/06/18 07:25 Dose: 1 tab Carbidopa/Levodopa (Sinemet) 1 tab PO DAILY@1500 [facility] Last Admin: 02/06/18 14:34 Dose: 1 tab Carbidopa/Levodopa (Sinemet) 2 tab PO DAILY@1330 [facility] Last Admin: 02/06/18 12:43 Dose: 2 tab Enoxaparin Sodium (Lovenox) 40 mg SC DAILY [facility] PRN Reason: Protocol Last Admin: 02/06/18 09:00 Dose: 40 mg Sodium Chloride (Sodium Chloride 0.9%) 1,000 mls @ 50 mls/hr IV .Q20H [facility] Stop: 02/07/18 09:10 Last Admin: 02/06/18 09:41 Dose: 50 mls/hr Lorazepam (Ativan) 1 mg PO HS PRN PRN Reason: Sleep Last Admin: 02/05/18 21:33 Dose: 1 mg Midodrine (Proamatine) 2.5 mg PO Q8 [facility] Pantoprazole Sodium (Protonix Ec Tab) 40 mg PO DAILY [facility] Last Admin: 02/06/18 09:01 Dose: 40 mg Quetiapine Fumarate (Seroquel) 25 mg PO HS PRN PRN Reason: Agitation - Labs Labs: 02/06/18 05:40 02/06/18 05:40 PT 12.5 Seconds (9.8-13.1) 02/03/18 05:10 INR 1.1 (0.9-1.2) 02/03/18 05:10 APTT 27.8 Seconds (25.6-37.1) 02/03/18 05:10 - Constitutional Appears: No Acute Distress - Head Exam Head Exam: NORMAL INSPECTION - Neurological Exam Neurological Exam: Alert, Awake, Oriented x3 Neuro motor strength exam: Left Upper Extremity: 5, Right Upper Extremity: 5, Left Lower Extremity: 3, Right Lower Extremity: 3 Additional comments: Neurological unchanged from previous examination. Assessment and Plan (1) Parkinsons disease Assessment & Plan: Case discussed with Dr. Womack, continue all current medical, physical, and occupational therapies. Recommend midodrine 2.5 mg PO Q 8 hours to alleviate hypotension which maybe due to side effects of sinemet and amantadine. Status: Acute
[2018-02-07] MEDS: Sodium Chloride 0.9% 1,000 ML IV SCH (05:15)
[2018-02-07] MEDS: Carbidopa/Levodopa 50/200 CR PO SCH (07:10)
[2018-02-07] MEDS: Pantoprazole 40 mg EC Tab PO SCH (08:00)
[2018-02-07] MEDS: Enoxaparin 40 mg Syringe SC SCH (08:01)
--- NOTE | 2018-02-07 09:40 | CP.PCM.PN ---
Subjective - Date & Time of Evaluation Date of Evaluation: 02/07/18 Time of Evaluation: 08:40 - Subjective Subjective: Inspite of IV NS at 50ml/hr for last 22 hrs, pt still has orthostatic hypotnsion BP lying bed 114 /70 mm Hg Sitting at the edge of the bed 96/70 mm Hg Standing up 64/50 mm Hg Pt has dizzy feeling on standing up Pt may excercise sitting down Will start on Florinef Objective - Vital Signs/Intake and Output Vital Signs (last 24 hours): Temp Pulse Resp BP Pulse Ox 97.6 F 82 19 131/80 97 02/07/18 08:57 02/07/18 08:57 02/07/18 08:57 02/07/18 08:57 02/07/18 08:57 - Medications Medications: Current Medications Amantadine HCl (Amantadine 100 Mg Cap) 100 mg PO DAILY [facility] Last Admin: 02/07/18 08:00 Dose: 100 mg Aspirin (Aspirin Chewable) 81 mg PO DAILY [facility] Last Admin: 02/07/18 08:00 Dose: 81 mg Carbidopa/Levodopa (Sinemet Cr) 1 tab PO DAILY@0700 [facility] Last Admin: 02/07/18 07:10 Dose: 1 tab Carbidopa/Levodopa (Sinemet) 1 tab PO DAILY@1500 [facility] Last Admin: 02/06/18 14:34 Dose: 1 tab Carbidopa/Levodopa (Sinemet) 2 tab PO DAILY@1330 [facility] Last Admin: 02/06/18 12:43 Dose: 2 tab Enoxaparin Sodium (Lovenox) 40 mg SC DAILY [facility] PRN Reason: Protocol Last Admin: 02/07/18 08:01 Dose: 40 mg Fludrocortisone Acetate (Florinef) 0.1 mg PO BID [facility] Lorazepam (Ativan) 1 mg PO HS PRN PRN Reason: Sleep Last Admin: 02/06/18 21:45 Dose: 1 mg Midodrine (Proamatine) 2.5 mg PO Q8 [facility] Last Admin: 02/07/18 07:11 Dose: 2.5 mg Pantoprazole Sodium (Protonix Ec Tab) 40 mg PO DAILY [facility] Last Admin: 02/07/18 08:00 Dose: 40 mg Quetiapine Fumarate (Seroquel) 25 mg PO HS PRN PRN Reason: Agitation - Labs Labs: 02/06/18 05:40 02/06/18 05:40 PT 12.5 Seconds (9.8-13.1) 02/03/18 05:10 INR 1.1 (0.9-1.2) 02/03/18 05:10 APTT 27.8 Seconds (25.6-37.1) 02/03/18 05:10
--- NOTE | 2018-02-07 12:31 | CP.PCM.PN ---
Subjective - Date & Time of Evaluation Date of Evaluation: 02/07/18 Time of Evaluation: 11:00 - Subjective Subjective: Patient was seen and examined during physical therapy. He has had several episodes of orthostatic hypotension for which caridiology is seeing him. He has had some lightheadedness before for this but denies any today. Previously his PT has been held due to the hypotension but he is able to do it today. Otherwise the patient states that he is doing well and feeling stronger. No complaints of shortness of breath or chest pain. Objective - Vital Signs/Intake and Output Vital Signs (last 24 hours): Temp Pulse Resp BP Pulse Ox 97.6 F 82 19 131/80 97 02/07/18 08:57 02/07/18 08:57 02/07/18 08:57 02/07/18 08:57 02/07/18 08:57 - Medications Medications: Current Medications Amantadine HCl (Amantadine 100 Mg Cap) 100 mg PO DAILY [facility] Last Admin: 02/07/18 08:00 Dose: 100 mg Aspirin (Aspirin Chewable) 81 mg PO DAILY [facility] Last Admin: 02/07/18 08:00 Dose: 81 mg Carbidopa/Levodopa (Sinemet Cr) 1 tab PO DAILY@0700 [facility] Last Admin: 02/07/18 07:10 Dose: 1 tab Carbidopa/Levodopa (Sinemet) 1 tab PO DAILY@1500 [facility] Last Admin: 02/06/18 14:34 Dose: 1 tab Carbidopa/Levodopa (Sinemet) 2 tab PO DAILY@1330 [facility] Last Admin: 02/06/18 12:43 Dose: 2 tab Enoxaparin Sodium (Lovenox) 40 mg SC DAILY [facility] PRN Reason: Protocol Last Admin: 02/07/18 08:01 Dose: 40 mg Fludrocortisone Acetate (Florinef) 0.1 mg PO BID [facility] Lorazepam (Ativan) 1 mg PO HS PRN PRN Reason: Sleep Last Admin: 02/06/18 21:45 Dose: 1 mg Midodrine (Proamatine) 2.5 mg PO Q8 [facility] Last Admin: 02/07/18 07:11 Dose: 2.5 mg Pantoprazole Sodium (Protonix Ec Tab) 40 mg PO DAILY [facility] Last Admin: 02/07/18 08:00 Dose: 40 mg Quetiapine Fumarate (Seroquel) 25 mg PO HS PRN PRN Reason: Agitation - Labs Labs: 02/06/18 05:40 02/06/18 05:40 PT 12.5 Seconds (9.8-13.1) 02/03/18 05:10 INR 1.1 (0.9-1.2) 02/03/18 05:10 APTT 27.8 Seconds (25.6-37.1) 02/03/18 05:10 - Additional Findings Additional findings: Physical exam: Constitutional- cooperative, awake, alert Head- NCAT, PERRL Eye- PERRL, EOMI ENT- normal exam, MMM. Neck- normal inspection, supple, no JVD Respiratory- CTAB, no wheezes rales rhonchi Cardiovascular- RRR, +S1, +S2 no MRG GI/Abdominal- normal bowel sounds, soft, no mass, no hsm Skin- warm, dry Extremities Exam- normal capillary refill, normal inspection Neurological Exam- alert, awake, oriented Psych- normal mood, normal affect Assessment and Plan - Assessment and Plan (Free Text) Plan: ASSESSMENT/PLAN 77 yo male with history of Parkinson's Disease, admitted at [facility] on 01/31/18 because of frequent falls. He was transferred to [facility] and admitted at [facility] for continuation of therapy. 1. Parkinson's Disease continue Sinemet and Amantadine Dr Juares on neuro consult 2. Orthostatic Hypotension, likely from autonomic dysfunction from the Parkinson 's, also could be due to Sinemet maybe the cause of his frequent falls cardiology consult with Dr Singh Avoid standing up too quickly during physical therapy Florinef ordered by Dr. Huggins, 0.1 mg po BID Midodrine 2.5 mg po q 8 hours 3. CAD continue ASA 4. DVT prophylaxis continue Lovenox
--- NOTE | 2018-02-07 15:16 | CP.PCM.PN ---
Subjective - Date & Time of Evaluation Date of Evaluation: 02/07/18 Time of Evaluation: 15:15 - Subjective Subjective: Mr. Hightower was seen and examined at the bedside. He is alert, oriented in all spheres. He denies any headache, dizziness, still claims of lower extremities weakness. He is able to move all extremities spontaneously with no tremors noted in his extremities. He is able to feed himself independently.According to staff, the patient has been hypotensive standing position and blood pressure normalize with lying and sitting position on Alexander stocking. He further claims of being hypotensive for most of his life. There was no untoward events overnight. Objective - Vital Signs/Intake and Output Vital Signs (last 24 hours): Temp Pulse Resp BP Pulse Ox 97.6 F 82 19 131/80 97 02/07/18 08:57 02/07/18 08:57 02/07/18 08:57 02/07/18 08:57 02/07/18 08:57 - Medications Medications: Current Medications Amantadine HCl (Amantadine 100 Mg Cap) 100 mg PO DAILY [facility] Last Admin: 02/07/18 08:00 Dose: 100 mg Aspirin (Aspirin Chewable) 81 mg PO DAILY [facility] Last Admin: 02/07/18 08:00 Dose: 81 mg Carbidopa/Levodopa (Sinemet Cr) 1 tab PO DAILY@0700 [facility] Last Admin: 02/07/18 07:10 Dose: 1 tab Carbidopa/Levodopa (Sinemet) 1 tab PO DAILY@1500 [facility] Last Admin: 02/07/18 15:07 Dose: 1 tab Carbidopa/Levodopa (Sinemet) 2 tab PO DAILY@1330 [facility] Last Admin: 02/07/18 12:33 Dose: 2 tab Enoxaparin Sodium (Lovenox) 40 mg SC DAILY [facility] PRN Reason: Protocol Last Admin: 02/07/18 08:01 Dose: 40 mg Fludrocortisone Acetate (Florinef) 0.1 mg PO BID [facility] Lorazepam (Ativan) 1 mg PO PRN PRN Reason: Sleep Last Admin: 02/06/18 21:45 Dose: 1 mg Midodrine (Proamatine) 2.5 mg PO Q8 [facility] Last Admin: 02/07/18 14:54 Dose: 2.5 mg Pantoprazole Sodium (Protonix Ec Tab) 40 mg PO DAILY [facility] Last Admin: 02/07/18 08:00 Dose: 40 mg Quetiapine Fumarate (Seroquel) 25 mg PO HS PRN PRN Reason: Agitation - Labs Labs: 02/06/18 05:40 02/06/18 05:40 PT 12.5 Seconds (9.8-13.1) 02/03/18 05:10 INR 1.1 (0.9-1.2) 02/03/18 05:10 APTT 27.8 Seconds (25.6-37.1) 02/03/18 05:10 - Constitutional Appears: No Acute Distress - Head Exam Head Exam: NORMAL INSPECTION - Neurological Exam Neurological Exam: Alert, Awake, Oriented x3 Neuro motor strength exam: Left Upper Extremity: 5, Right Upper Extremity: 5, Left Lower Extremity: 3, Right Lower Extremity: 3 Additional comments: Neurological unchanged from previous examination. Assessment and Plan (1) Parkinsons disease Assessment & Plan: Case discussed with Dr. Womack, continue all current medical, physical, and occupational therapies. Recommend midodrine 2.5 mg PO Q 8 hours to alleviate hypotension which maybe due to side effects of sinemet and amantadine. If the patient does not have any untoward reactions from midodrine, will increase the dose to 5 mg PO Q 8 in couple days. Status: Acute
[2018-02-08] MEDS: Carbidopa/Levodopa 50/200 CR PO SCH (06:58)
[2018-02-08] MEDS: Enoxaparin 40 mg Syringe SC SCH (08:43)
[2018-02-08] MEDS: Pantoprazole 40 mg EC Tab PO SCH (08:45)
--- NOTE | 2018-02-08 10:38 | CP.PCM.PN ---
Subjective - Date & Time of Evaluation Date of Evaluation: 02/08/18 Time of Evaluation: 09:45 - Subjective Subjective: Pt seen in PT while having therapy in a chair Symptomfree while in a chair BP sitting doen: 92/60 mm Hg Standing up 66/40 mm Hg Pt feels lightheaded upon standing up Have added Midodrine 5 mg BID to Florinef Objective - Vital Signs/Intake and Output Vital Signs (last 24 hours): Temp Pulse Resp BP Pulse Ox 97.5 F L 82 19 133/84 98 02/08/18 08:34 02/08/18 08:34 02/08/18 08:34 02/08/18 08:34 02/08/18 08:34 - Medications Medications: Current Medications Amantadine HCl (Amantadine 100 Mg Cap) 100 mg PO DAILY [facility] Last Admin: 02/08/18 08:45 Dose: 100 mg Aspirin (Aspirin Chewable) 81 mg PO DAILY [facility] Last Admin: 02/08/18 08:45 Dose: 81 mg Carbidopa/Levodopa (Sinemet Cr) 1 tab PO DAILY@0700 [facility] Last Admin: 02/08/18 06:58 Dose: 1 tab Carbidopa/Levodopa (Sinemet) 1 tab PO DAILY@1500 [facility] Last Admin: 02/07/18 15:07 Dose: 1 tab Carbidopa/Levodopa (Sinemet) 2 tab PO DAILY@1330 [facility] Last Admin: 02/07/18 12:33 Dose: 2 tab Enoxaparin Sodium (Lovenox) 40 mg SC DAILY [facility] PRN Reason: Protocol Last Admin: 02/08/18 08:43 Dose: 40 mg Fludrocortisone Acetate (Florinef) 0.1 mg PO BID [facility] Last Admin: 02/08/18 08:43 Dose: 0.1 mg Lorazepam (Ativan) 1 mg PO HS PRN PRN Reason: Sleep Last Admin: 02/07/18 21:59 Dose: 1 mg Midodrine (Proamatine) 5 mg PO BID [facility] Pantoprazole Sodium (Protonix Ec Tab) 40 mg PO DAILY [facility] Last Admin: 02/08/18 08:45 Dose: 40 mg Quetiapine Fumarate (Seroquel) 25 mg PO HS PRN PRN Reason: Agitation - Labs Labs: 02/06/18 05:40 02/06/18 05:40 PT 12.5 Seconds (9.8-13.1) 02/03/18 05:10 INR 1.1 (0.9-1.2) 02/03/18 05:10 APTT 27.8 Seconds (25.6-37.1) 02/03/18 05:10
[2018-02-08 20:19] LABS: SQUAMOUS EPITHIAL < 1 /hpf (0-5); URINE AMORPHOUS SEDIMENT RARE /ul (<OCC); URINE BILIRUBIN NEGATIVE (NEGATIVE); URINE BLOOD NEGATIVE (NEGATIVE); URINE CLARITY CLOUDY (Clear); URINE COLOR YELLOW (YELLOW); URINE GLUCOSE (UA) NEG (Normal); URINE LEUKOCYTE ESTERASE TRACE Leu/uL (Negative); URINE PROTEIN 30 mg/dL (NEGATIVE)
[2018-02-09] MEDS: Carbidopa/Levodopa 50/200 CR PO SCH (06:20)
[2018-02-09 06:37] LABS: MEAN CELL VOLUME 89.9 fl (80.0-94.0); MEAN CORPUSCULAR HEMOGLOBIN 29.9 pg (27.0-31.0); MEAN CORPUSCULAR HGB CONC 33.2 g/dL (33.0-37.0); RBC 4.02 Mil/uL (4.40-5.90); RED CELL DISTRIBUTION WIDTH 14.5 % (11.5-14.5); WHITE BLOOD COUNT 7.9 K/uL (4.8-10.8)
[2018-02-09 06:45] LABS: BLOOD UREA NITROGEN 34 mg/dl (9-20); CALCIUM 9.1 mg/dL (8.4-10.2); GFR AFRICAN-AMERICAN > 60; GFR NON-AFRICAN AMERICAN 53
--- NOTE | 2018-02-09 08:11 | CP.PCM.PN ---
Subjective - Date & Time of Evaluation Date of Evaluation: 02/09/18 Time of Evaluation: 08:00 - Subjective Subjective: No new sypmtos Feels light headed on standing up BP lying down : 122/80 mm Hg Sitting up 102/60 mm Hg Standing up : 64/40 mm Hg with dizziness HR 80 BPM sitting up in bed No signs of CHF On 0.3 Mg of Flirinef and 5 mg of Midodrin BID Early next WK these doses might need to be increased if no improvement in orthostatic drop in BP Objective - Vital Signs/Intake and Output Vital Signs (last 24 hours): Temp Pulse Resp BP Pulse Ox 97.7 F 79 20 131/79 97 02/08/18 20:30 02/08/18 20:30 02/08/18 20:30 02/08/18 20:30 02/08/18 20:30 - Medications Medications: Current Medications Amantadine HCl (Amantadine 100 Mg Cap) 100 mg PO DAILY [facility] Last Admin: 02/08/18 08:45 Dose: 100 mg Aspirin (Aspirin Chewable) 81 mg PO DAILY [facility] Last Admin: 02/08/18 08:45 Dose: 81 mg Carbidopa/Levodopa (Sinemet Cr) 1 tab PO DAILY@0700 [facility] Last Admin: 02/09/18 06:20 Dose: 1 tab Carbidopa/Levodopa (Sinemet) 1 tab PO DAILY@1500 [facility] Last Admin: 02/08/18 15:39 Dose: 1 tab Carbidopa/Levodopa (Sinemet) 2 tab PO DAILY@1330 [facility] Last Admin: 02/08/18 13:31 Dose: 2 tab Docusate Sodium (Colace) 100 mg PO BID [facility] Last Admin: 02/08/18 17:04 Dose: 100 mg Enoxaparin Sodium (Lovenox) 40 mg SC DAILY [facility] PRN Reason: Protocol Last Admin: 02/08/18 08:43 Dose: 40 mg Fludrocortisone Acetate (Florinef) 0.1 mg PO TID [facility] Lorazepam (Ativan) 1 mg PO PRN PRN Reason: Sleep Last Admin: 02/08/18 21:34 Dose: 1 mg Midodrine (Proamatine) 5 mg PO BID [facility] Last Admin: 02/08/18 17:02 Dose: 5 mg Pantoprazole Sodium (Protonix Ec Tab) 40 mg PO DAILY [facility] Last Admin: 02/08/18 08:45 Dose: 40 mg Quetiapine Fumarate (Seroquel) 25 mg PO HS PRN PRN Reason: Agitation - Labs Labs: 02/09/18 05:20 02/09/18 05:20 PT 12.5 Seconds (9.8-13.1) 02/03/18 05:10 INR 1.1 (0.9-1.2) 02/03/18 05:10 APTT 27.8 Seconds (25.6-37.1) 02/03/18 05:10
[2018-02-09] MEDS: Enoxaparin 40 mg Syringe SC SCH (08:26)
[2018-02-09] MEDS: Pantoprazole 40 mg EC Tab PO SCH (08:26)
--- NOTE | 2018-02-09 11:29 | CP.PCM.PN ---
Subjective - Date & Time of Evaluation Date of Evaluation: 02/09/18 Time of Evaluation: 11:29 - Subjective Subjective: Mr. Hightower was seen and examined at the bedside. He is alert, oriented in all spheres. He denies any headache, dizziness, still claims of lower extremities weakness. He is able to move all extremities spontaneously with no tremors noted in his extremities. He is able to feed himself independently.According to staff, the patient has been hypotensive standing position and blood pressure normalize with lying and sitting position on Alexander stocking. His ua showed signs of infection, primary team aware with orders. Encourage patient to increase fluid intake. There was no untoward events overnight. Objective - Vital Signs/Intake and Output Vital Signs (last 24 hours): Temp Pulse Resp BP Pulse Ox 97.6 F 84 22 103/56 L 96 02/09/18 08:52 02/09/18 08:52 02/09/18 08:52 02/09/18 08:52 02/09/18 08:52 - Medications Medications: Current Medications Amantadine HCl (Amantadine 100 Mg Cap) 100 mg PO DAILY [facility] Last Admin: 02/09/18 08:25 Dose: 100 mg Aspirin (Aspirin Chewable) 81 mg PO DAILY [facility] Last Admin: 02/09/18 08:26 Dose: 81 mg Carbidopa/Levodopa (Sinemet Cr) 1 tab PO DAILY@0700 [facility] Last Admin: 02/09/18 06:20 Dose: 1 tab Carbidopa/Levodopa (Sinemet) 1 tab PO DAILY@1500 [facility] Last Admin: 02/08/18 15:39 Dose: 1 tab Carbidopa/Levodopa (Sinemet) 2 tab PO DAILY@1330 [facility] Last Admin: 02/08/18 13:31 Dose: 2 tab Docusate Sodium (Colace) 100 mg PO BID [facility] Last Admin: 02/09/18 08:26 Dose: 100 mg Enoxaparin Sodium (Lovenox) 40 mg SC DAILY [facility] PRN Reason: Protocol Last Admin: 02/09/18 08:26 Dose: 40 mg Fludrocortisone Acetate (Florinef) 0.1 mg PO TID [facility] Last Admin: 02/09/18 08:26 Dose: 0.1 mg Lorazepam (Ativan) 1 mg PO PRN PRN Reason: Sleep Last Admin: 02/08/18 21:34 Dose: 1 mg Midodrine (Proamatine) 5 mg PO BID [facility] Last Admin: 02/09/18 08:26 Dose: 5 mg Pantoprazole Sodium (Protonix Ec Tab) 40 mg PO DAILY [facility] Last Admin: 02/09/18 08:26 Dose: 40 mg Quetiapine Fumarate (Seroquel) 25 mg PO HS PRN PRN Reason: Agitation - Labs Labs: 02/09/18 05:20 02/09/18 05:20 PT 12.5 Seconds (9.8-13.1) 02/03/18 05:10 INR 1.1 (0.9-1.2) 02/03/18 05:10 APTT 27.8 Seconds (25.6-37.1) 02/03/18 05:10 - Constitutional Appears: No Acute Distress - Head Exam Head Exam: NORMAL INSPECTION - Neurological Exam Neurological Exam: Alert, Awake, Oriented x3 Neuro motor strength exam: Left Upper Extremity: 4, Right Upper Extremity: 4, Left Lower Extremity: 3, Right Lower Extremity: 3 Additional comments: Neurological unchanged from previous examination. Assessment and Plan (1) Parkinsons disease Assessment & Plan: Case discussed with Dr. Womack, continue all current medical, physical, and occupational therapies. Recommend to follow any orders from cardiology regarding hypotension. Recommend to increase po intake and treat any underlying infection. Status: Acute
--- NOTE | 2018-02-09 12:14 | CARD ---
APPROVED REPORT EKG Measurement Heart [id number] CT [id number] <Conclusion> Normal sinus rhythm Left axis deviation Abnormal ECG
--- NOTE | 2018-02-09 12:24 | CP.PCM.PN ---
Subjective - Date & Time of Evaluation Date of Evaluation: 02/09/18 Time of Evaluation: 10:30 - Subjective Subjective: Patient seen and examined. Still with orthostatic hypotension although asymptomatic. Already on Midodrine and Florinef as recommended by Dr Singh. Objective - Vital Signs/Intake and Output Vital Signs (last 24 hours): Temp Pulse Resp BP Pulse Ox 97.6 F 84 22 103/56 L 96 02/09/18 08:52 02/09/18 08:52 02/09/18 08:52 02/09/18 08:52 02/09/18 08:52 - Medications Medications: Current Medications Amantadine HCl (Amantadine 100 Mg Cap) 100 mg PO DAILY [facility] Last Admin: 02/09/18 08:25 Dose: 100 mg Aspirin (Aspirin Chewable) 81 mg PO DAILY [facility] Last Admin: 02/09/18 08:26 Dose: 81 mg Carbidopa/Levodopa (Sinemet Cr) 1 tab PO DAILY@0700 [facility] Last Admin: 02/09/18 06:20 Dose: 1 tab Carbidopa/Levodopa (Sinemet) 1 tab PO DAILY@1500 [facility] Last Admin: 02/08/18 15:39 Dose: 1 tab Carbidopa/Levodopa (Sinemet) 2 tab PO DAILY@1330 [facility] Last Admin: 02/08/18 13:31 Dose: 2 tab Docusate Sodium (Colace) 100 mg PO BID [facility] Last Admin: 02/09/18 08:26 Dose: 100 mg Enoxaparin Sodium (Lovenox) 40 mg SC DAILY [facility] PRN Reason: Protocol Last Admin: 02/09/18 08:26 Dose: 40 mg Fludrocortisone Acetate (Florinef) 0.1 mg PO TID [facility] Last Admin: 02/09/18 08:26 Dose: 0.1 mg Lorazepam (Ativan) 1 mg PO PRN PRN Reason: Sleep Last Admin: 02/08/18 21:34 Dose: 1 mg Midodrine (Proamatine) 5 mg PO BID [facility] Last Admin: 02/09/18 08:26 Dose: 5 mg Nitrofurantoin Macrocrystals (Macrobid) 100 mg PO Q12 [facility] PRN Reason: Protocol Pantoprazole Sodium (Protonix Ec Tab) 40 mg PO DAILY [facility] Last Admin: 02/09/18 08:26 Dose: 40 mg Quetiapine Fumarate (Seroquel) 25 mg PO HS PRN PRN Reason: Agitation - Labs Labs: 02/09/18 05:20 02/09/18 05:20 PT 12.5 Seconds (9.8-13.1) 02/03/18 05:10 INR 1.1 (0.9-1.2) 02/03/18 05:10 APTT 27.8 Seconds (25.6-37.1) 02/03/18 05:10 - Constitutional Appears: No Acute Distress - Head Exam Head Exam: ATRAUMATIC - Eye Exam Eye Exam: absent: Scleral icterus - ENT Exam ENT Exam: Mucous Membranes Moist - Neck Exam Neck Exam: absent: Meningismus - Respiratory Exam Respiratory Exam: absent: Rales, Rhonchi, Wheezes, Respiratory Distress - Cardiovascular Exam Cardiovascular Exam: REGULAR RHYTHM, +S1, +S2 - GI/Abdominal Exam GI & Abdominal Exam: Soft. absent: Tenderness - Rectal Exam Rectal Exam: Deferred - Neurological Exam Neurological Exam: Alert, Oriented x3 - Psychiatric Exam Psychiatric exam: Normal Affect - Skin Skin Exam: Dry, Intact Assessment and Plan - Assessment and Plan (Free Text) Assessment: 77 yo male with history of Parkinson's Disease, admitted at [facility] on 01/31/18 because of frequent falls. He was transferred to [facility] and admitted at [facility] for continuation of therapy. 1. Parkinson's Disease continue Sinemet and Amantadine Dr Juares on neuro consult 2. Orthostatic Hypotension maybe the cause of frequent falls cardiology consult with Dr Singh appreciated still with significant orthostatic hypotension inspite of Florinef and Midodrine Florinef increased to 0.1mg PO TID 3. CAD continue ASA 4. UTI urine culture Macrobid 100mg PO q 12hrs 5. DVT prophylaxis continue Lovenox
--- NOTE | 2018-02-09 13:06 | CP.PCM.PN ---
Subjective - Date & Time of Evaluation Date of Evaluation: 02/09/18 Time of Evaluation: 13:04 - Subjective Subjective: Patient seen in the room, doing ok, but still with persistent hypotension getting multiple medications and I discussed with Dr Huggins at length who is very aware of the situation and trying to resolve this problem continue with as much therapy as can be done given his medical constraints Objective - Vital Signs/Intake and Output Vital Signs (last 24 hours): Temp Pulse Resp BP Pulse Ox 97.6 F 84 22 103/56 L 96 02/09/18 08:52 02/09/18 08:52 02/09/18 08:52 02/09/18 08:52 02/09/18 08:52 - Medications Medications: Current Medications Amantadine HCl (Amantadine 100 Mg Cap) 100 mg PO DAILY [facility] Last Admin: 02/09/18 08:25 Dose: 100 mg Aspirin (Aspirin Chewable) 81 mg PO DAILY [facility] Last Admin: 02/09/18 08:26 Dose: 81 mg Carbidopa/Levodopa (Sinemet Cr) 1 tab PO DAILY@0700 [facility] Last Admin: 02/09/18 06:20 Dose: 1 tab Carbidopa/Levodopa (Sinemet) 1 tab PO DAILY@1500 [facility] Last Admin: 02/08/18 15:39 Dose: 1 tab Carbidopa/Levodopa (Sinemet) 2 tab PO DAILY@1330 [facility] Last Admin: 02/09/18 12:46 Dose: 2 tab Docusate Sodium (Colace) 100 mg PO BID [facility] Last Admin: 02/09/18 08:26 Dose: 100 mg Enoxaparin Sodium (Lovenox) 40 mg SC DAILY [facility] PRN Reason: Protocol Last Admin: 02/09/18 08:26 Dose: 40 mg Fludrocortisone Acetate (Florinef) 0.1 mg PO TID [facility] Last Admin: 02/09/18 12:46 Dose: 0.1 mg Lorazepam (Ativan) 1 mg PO PRN PRN Reason: Sleep Last Admin: 02/08/18 21:34 Dose: 1 mg Midodrine (Proamatine) 5 mg PO BID [facility] Last Admin: 02/09/18 08:26 Dose: 5 mg Nitrofurantoin Macrocrystals (Macrobid) 100 mg PO Q12 [facility] PRN Reason: Protocol Pantoprazole Sodium (Protonix Ec Tab) 40 mg PO DAILY [facility] Last Admin: 02/09/18 08:26 Dose: 40 mg Quetiapine Fumarate (Seroquel) 25 mg PO HS PRN PRN Reason: Agitation - Labs Labs: 02/09/18 05:20 02/09/18 05:20 PT 12.5 Seconds (9.8-13.1) 02/03/18 05:10 INR 1.1 (0.9-1.2) 02/03/18 05:10 APTT 27.8 Seconds (25.6-37.1) 02/03/18 05:10
[2018-02-10] MEDS: Carbidopa/Levodopa 50/200 CR PO SCH (06:27)
[2018-02-10] MEDS: Enoxaparin 40 mg Syringe SC SCH (08:43)
[2018-02-10] MEDS: Pantoprazole 40 mg EC Tab PO SCH (08:44)
--- NOTE | 2018-02-10 09:15 | CP.PCM.PN ---
Subjective - Date & Time of Evaluation Date of Evaluation: 02/10/18 Time of Evaluation: 09:00 - Subjective Subjective: CARDIOLOGY covering for Dr Hugigns Pt claims he feels slightly better he was up ambulating this AM and claims his BP standing was 130 systolic He is on Florinef 0.1mg TID MIdodrine 5mg BID Objective - Vital Signs/Intake and Output Vital Signs (last 24 hours): Temp Pulse Resp BP Pulse Ox 98.2 F 79 19 123/78 94 L 02/10/18 08:37 02/10/18 08:37 02/10/18 08:37 02/10/18 08:37 02/10/18 08:37 - Medications Medications: Current Medications Amantadine HCl (Amantadine 100 Mg Cap) 100 mg PO DAILY [facility] Last Admin: 02/10/18 08:43 Dose: 100 mg Aspirin (Aspirin Chewable) 81 mg PO DAILY [facility] Last Admin: 02/10/18 08:44 Dose: 81 mg Carbidopa/Levodopa (Sinemet Cr) 1 tab PO DAILY@0700 [facility] Last Admin: 02/10/18 06:27 Dose: 1 tab Carbidopa/Levodopa (Sinemet) 1 tab PO DAILY@1500 [facility] Last Admin: 02/09/18 15:39 Dose: 1 tab Carbidopa/Levodopa (Sinemet) 2 tab PO DAILY@1330 [facility] Last Admin: 02/09/18 12:46 Dose: 2 tab Docusate Sodium (Colace) 100 mg PO BID [facility] Last Admin: 02/10/18 08:44 Dose: 100 mg Enoxaparin Sodium (Lovenox) 40 mg SC DAILY [facility] PRN Reason: Protocol Last Admin: 02/10/18 08:43 Dose: 40 mg Fludrocortisone Acetate (Florinef) 0.1 mg PO TID [facility] Last Admin: 02/10/18 08:43 Dose: 0.1 mg Lorazepam (Ativan) 1 mg PO HS PRN PRN Reason: Sleep Last Admin: 02/09/18 21:28 Dose: 1 mg Midodrine (Proamatine) 5 mg PO BID [facility] Last Admin: 02/10/18 08:43 Dose: 5 mg Nitrofurantoin Macrocrystals (Macrobid) 100 mg PO Q12 [facility] PRN Reason: Protocol Last Admin: 02/10/18 08:43 Dose: 100 mg Pantoprazole Sodium (Protonix Ec Tab) 40 mg PO DAILY [facility] Last Admin: 02/10/18 08:44 Dose: 40 mg Quetiapine Fumarate (Seroquel) 25 mg PO HS PRN PRN Reason: Agitation - Labs Labs: 02/09/18 05:20 02/09/18 05:20 PT 12.5 Seconds (9.8-13.1) 02/03/18 05:10 INR 1.1 (0.9-1.2) 02/03/18 05:10 APTT 27.8 Seconds (25.6-37.1) 02/03/18 05:10 - Respiratory Exam Respiratory Exam: NORMAL BREATHING PATTERN - Cardiovascular Exam Cardiovascular Exam: REGULAR RHYTHM
--- NOTE | 2018-02-10 19:48 | CP.PCM.PN ---
Subjective - Date & Time of Evaluation Date of Evaluation: 02/10/18 Time of Evaluation: 13:30 - Subjective Subjective: no acute complaints at present Objective - Vital Signs/Intake and Output Vital Signs (last 24 hours): Temp Pulse Resp BP Pulse Ox 98.2 F 79 19 123/78 94 L 02/10/18 08:37 02/10/18 08:37 02/10/18 08:37 02/10/18 08:37 02/10/18 08:37 - Medications Medications: Current Medications Amantadine HCl (Amantadine 100 Mg Cap) 100 mg PO DAILY [facility] Last Admin: 02/10/18 08:43 Dose: 100 mg Aspirin (Aspirin Chewable) 81 mg PO DAILY [facility] Last Admin: 02/10/18 08:44 Dose: 81 mg Carbidopa/Levodopa (Sinemet Cr) 1 tab PO DAILY@0700 [facility] Last Admin: 02/10/18 06:27 Dose: 1 tab Carbidopa/Levodopa (Sinemet) 1 tab PO DAILY@1500 [facility] Last Admin: 02/10/18 15:05 Dose: 1 tab Carbidopa/Levodopa (Sinemet) 2 tab PO DAILY@1330 [facility] Last Admin: 02/10/18 12:27 Dose: 2 tab Docusate Sodium (Colace) 100 mg PO BID [facility] Last Admin: 02/10/18 17:04 Dose: 100 mg Enoxaparin Sodium (Lovenox) 40 mg SC DAILY [facility] PRN Reason: Protocol Fludrocortisone Acetate (Florinef) 0.1 mg PO TID [facility] Last Admin: 02/10/18 17:04 Dose: 0.1 mg Lorazepam (Ativan) 1 mg PO HS PRN PRN Reason: Sleep Last Admin: 02/09/18 21:28 Dose: 1 mg Midodrine (Proamatine) 5 mg PO BID [facility] Last Admin: 02/10/18 17:04 Dose: 5 mg Nitrofurantoin Macrocrystals (Macrobid) 100 mg PO Q12 [facility] PRN Reason: Protocol Last Admin: 02/10/18 08:43 Dose: 100 mg Pantoprazole Sodium (Protonix Ec Tab) 40 mg PO DAILY [facility] Last Admin: 02/10/18 08:44 Dose: 40 mg Quetiapine Fumarate (Seroquel) 25 mg PO HS PRN PRN Reason: Agitation - Labs Labs: 02/09/18 05:20 02/09/18 05:20 PT 12.5 Seconds (9.8-13.1) 02/03/18 05:10 INR 1.1 (0.9-1.2) 02/03/18 05:10 APTT 27.8 Seconds (25.6-37.1) 02/03/18 05:10 - Head Exam Head Exam: ATRAUMATIC, NORMAL INSPECTION, NORMOCEPHALIC - Eye Exam Eye Exam: EOMI, Normal appearance Pupil Exam: NORMAL ACCOMODATION, PERRL - ENT Exam ENT Exam: Mucous Membranes Moist, Normal Exam - Neck Exam Neck Exam: Full ROM, Normal Inspection - Respiratory Exam Respiratory Exam: Clear to Ausculation Bilateral, NORMAL BREATHING PATTERN - Cardiovascular Exam Cardiovascular Exam: REGULAR RHYTHM - GI/Abdominal Exam GI & Abdominal Exam: Soft, Normal Bowel Sounds - Rectal Exam Rectal Exam: NORMAL INSPECTION - Exam External exam: NORMAL EXTERNAL EXAM - Extremities Exam Extremities Exam: Full ROM, Normal Capillary Refill, Normal Inspection - Back Exam Back Exam: NORMAL INSPECTION - Neurological Exam Neurological Exam: Alert, Awake Additional comments: weakness - Psychiatric Exam Psychiatric exam: Normal Affect, Normal Mood - Skin Skin Exam: Dry, Normal Color Assessment and Plan (1) Parkinsons disease Assessment & Plan: plan for physical, occupational rec therapy covering for Dr santizo for today Status: Acute
[2018-02-11] MEDS: Carbidopa/Levodopa 50/200 CR PO SCH (06:21)
[2018-02-11] MEDS: Pantoprazole 40 mg EC Tab PO SCH (08:24)
[2018-02-11] MEDS: Enoxaparin 40 mg Syringe SC SCH (08:25)
[2018-02-12] MEDS: Carbidopa/Levodopa 50/200 CR PO SCH (06:38)
[2018-02-12 06:42] LABS: HEMOGLOBIN 12.4 g/dL (12.0-18.0); MEAN CELL VOLUME 89.8 fl (80.0-94.0); MEAN CORPUSCULAR HEMOGLOBIN 29.7 pg (27.0-31.0); MEAN CORPUSCULAR HGB CONC 33.1 g/dL (33.0-37.0); RBC 4.18 Mil/uL (4.40-5.90); RED CELL DISTRIBUTION WIDTH 14.9 % (11.5-14.5); WHITE BLOOD COUNT 7.5 K/uL (4.8-10.8)
[2018-02-12 06:52] LABS: BLOOD UREA NITROGEN 28 mg/dl (9-20); CALCIUM 9.1 mg/dL (8.4-10.2); GFR AFRICAN-AMERICAN > 60; GFR NON-AFRICAN AMERICAN > 60
[2018-02-12] MEDS: Enoxaparin 40 mg Syringe SC SCH (09:17)
[2018-02-12] MEDS: Pantoprazole 40 mg EC Tab PO SCH (09:18)
--- NOTE | 2018-02-12 11:14 | CP.PCM.PN ---
Subjective - Date & Time of Evaluation Date of Evaluation: 02/12/18 Time of Evaluation: 11:13 - Subjective Subjective: Mr. Hightower was seen and examined at the bedside. He is alert, oriented in all spheres. He denies any headache, dizziness, still claims of lower extremities weakness. He is able to move all extremities spontaneously with no tremors noted in his extremities. He is able to feed himself independently.According to staff, the patient has been hypotensive standing position and blood pressure normalize with lying and sitting position on Alexander stocking. His ua showed signs of infection, on antibiotic therapy. Encourage patient to increase fluid intake. There was no untoward events overnight. Objective - Vital Signs/Intake and Output Vital Signs (last 24 hours): Temp Pulse Resp BP Pulse Ox 98.4 F 72 20 138/79 97 02/11/18 20:03 02/11/18 20:03 02/11/18 20:03 02/11/18 20:03 02/11/18 20:03 - Medications Medications: Current Medications Acetaminophen (Tylenol 325mg Tab) 650 mg PO Q6 PRN PRN Reason: Headache Last Admin: 02/11/18 06:21 Dose: 650 mg Amantadine HCl (Amantadine 100 Mg Cap) 100 mg PO DAILY [facility] Last Admin: 02/12/18 09:16 Dose: 100 mg Aspirin (Aspirin Chewable) 81 mg PO DAILY [facility] Last Admin: 02/12/18 09:16 Dose: 81 mg Carbidopa/Levodopa (Sinemet Cr) 1 tab PO DAILY@0700 [facility] Last Admin: 02/12/18 06:38 Dose: 1 tab Carbidopa/Levodopa (Sinemet) 1 tab PO DAILY@1500 [facility] Last Admin: 02/11/18 16:03 Dose: 1 tab Carbidopa/Levodopa (Sinemet) 2 tab PO DAILY@1330 [facility] Last Admin: 02/11/18 12:25 Dose: 2 tab Docusate Sodium (Colace) 100 mg PO BID [facility] Last Admin: 02/12/18 09:16 Dose: 100 mg Enoxaparin Sodium (Lovenox) 40 mg SC DAILY [facility] PRN Reason: Protocol Last Admin: 02/12/18 09:17 Dose: 40 mg Fludrocortisone Acetate (Florinef) 0.1 mg PO TID [facility] Last Admin: 02/12/18 09:17 Dose: 0.1 mg Lorazepam (Ativan) 1 mg PO HS PRN PRN Reason: Sleep Last Admin: 02/11/18 21:26 Dose: 1 mg Midodrine (Proamatine) 5 mg PO BID [facility] Last Admin: 02/12/18 09:17 Dose: 5 mg Nitrofurantoin Macrocrystals (Macrobid) 100 mg PO Q12 [facility] PRN Reason: Protocol Last Admin: 02/12/18 09:17 Dose: 100 mg Pantoprazole Sodium (Protonix Ec Tab) 40 mg PO DAILY [facility] Last Admin: 02/12/18 09:18 Dose: 40 mg Quetiapine Fumarate (Seroquel) 25 mg PO HS PRN PRN Reason: Agitation - Labs Labs: 02/12/18 05:15 02/12/18 05:15 PT 12.5 Seconds (9.8-13.1) 02/03/18 05:10 INR 1.1 (0.9-1.2) 02/03/18 05:10 APTT 27.8 Seconds (25.6-37.1) 02/03/18 05:10 - Constitutional Appears: No Acute Distress - Head Exam Head Exam: NORMAL INSPECTION - Neurological Exam Neurological Exam: Alert, Awake Neuro motor strength exam: Left Upper Extremity: 5, Right Upper Extremity: 5, Left Lower Extremity: 2/1, Right Lower Extremity: 2/1 Additional comments: Neurological unchanged from previous examination. Assessment and Plan (1) Parkinsons disease Assessment & Plan: Case discussed with Dr. Juares, continue all current medical, physical, and occupational therapies. Recommend to treat any infection. Recommend to increase po intake and treat any underlying infection. Status: Acute
--- NOTE | 2018-02-12 12:51 | CP.PCM.PN ---
Subjective - Date & Time of Evaluation Date of Evaluation: 02/12/18 Time of Evaluation: 12:51 - Subjective Subjective: pt doing well no complaints at this time denies cp sob n/v/c/d hd stable nad uti strep viridans, sens to pcn, vanc, ceftx. Ceftx ordered for 5 days. Objective - Vital Signs/Intake and Output Vital Signs (last 24 hours): Temp Pulse Resp BP Pulse Ox 97.0 F L 84 19 104/67 97 02/12/18 10:00 02/12/18 10:00 02/12/18 10:00 02/12/18 10:00 02/12/18 10:00 Intake and Output: Vitals Reviewed GEN: WDWN, alert, cooperative HEENT: NCAT, PERRL, EOMI HEART: RRR, +S1S2, NO MRG LUNG: CTAB, NO WRR ABD: soft, NT, ND, No HSM, No masses EXT: normal pedal pulses, normal capillary refill NEURO: awake, alert SKIN: warm, dry PSYCH: normal mood, normal affect - Medications Medications: Current Medications Acetaminophen (Tylenol 325mg Tab) 650 mg PO Q6 PRN PRN Reason: Headache Last Admin: 02/11/18 06:21 Dose: 650 mg Amantadine HCl (Amantadine 100 Mg Cap) 100 mg PO DAILY [facility] Last Admin: 02/12/18 09:16 Dose: 100 mg Aspirin (Aspirin Chewable) 81 mg PO DAILY [facility] Last Admin: 02/12/18 09:16 Dose: 81 mg Carbidopa/Levodopa (Sinemet Cr) 1 tab PO DAILY@0700 [facility] Last Admin: 02/12/18 06:38 Dose: 1 tab Carbidopa/Levodopa (Sinemet) 1 tab PO DAILY@1500 [facility] Last Admin: 02/11/18 16:03 Dose: 1 tab Carbidopa/Levodopa (Sinemet) 2 tab PO DAILY@1330 [facility] Last Admin: 02/11/18 12:25 Dose: 2 tab Docusate Sodium (Colace) 100 mg PO BID [facility] Last Admin: 02/12/18 09:16 Dose: 100 mg Enoxaparin Sodium (Lovenox) 40 mg SC DAILY [facility] PRN Reason: Protocol Last Admin: 02/12/18 09:17 Dose: 40 mg Fludrocortisone Acetate (Florinef) 0.1 mg PO TID [facility] Last Admin: 02/12/18 09:17 Dose: 0.1 mg Lorazepam (Ativan) 1 mg PO HS PRN PRN Reason: Sleep Last Admin: 02/11/18 21:26 Dose: 1 mg Midodrine (Proamatine) 5 mg PO BID [facility] Last Admin: 02/12/18 09:17 Dose: 5 mg Nitrofurantoin Macrocrystals (Macrobid) 100 mg PO Q12 [facility] PRN Reason: Protocol Last Admin: 02/12/18 09:17 Dose: 100 mg Pantoprazole Sodium (Protonix Ec Tab) 40 mg PO DAILY [facility] Last Admin: 02/12/18 09:18 Dose: 40 mg Quetiapine Fumarate (Seroquel) 25 mg PO HS PRN PRN Reason: Agitation - Labs Labs: 02/12/18 05:15 02/12/18 05:15 PT 12.5 Seconds (9.8-13.1) 02/03/18 05:10 INR 1.1 (0.9-1.2) 02/03/18 05:10 APTT 27.8 Seconds (25.6-37.1) 02/03/18 05:10 Assessment and Plan - Assessment and Plan (Free Text) Plan: 77 yo male with history of Parkinson's Disease, admitted at [facility] on 01/31/18 because of frequent falls. He was transferred to [facility] and admitted at Acute Rehab for continuation of therapy. 1. Parkinson's Disease continue Sinemet and Amantadine Dr Juares on neuro consult 2. Orthostatic Hypotension maybe the cause of frequent falls cardiology consult with Dr Singh appreciated still with significant orthostatic hypotension inspite of Florinef and Midodrine Florinef increased to 0.1mg PO TID 3. CAD continue ASA 4. UTI urine culture uti strep viridans, sens to pcn, vanc, ceftx. Ceftx ordered for 5 days. 5. DVT prophylaxis continue Lovenox
--- NOTE | 2018-02-12 18:40 | CP.PCM.PN ---
Subjective - Date & Time of Evaluation Date of Evaluation: 02/12/18 Time of Evaluation: 18:39 - Subjective Subjective: Patient seen in the room the was present and I discussed the plan of care and she doesn't want [facility]IA[facility] but it may end up that there is little other choice unless they have resources to provide extended services at home. He may benefit from TCU to manage his medical status and continue therapy and then possible [facility] Objective - Vital Signs/Intake and Output Vital Signs (last 24 hours): Temp Pulse Resp BP Pulse Ox 97.0 F L 84 19 104/67 97 02/12/18 10:00 02/12/18 10:00 02/12/18 10:00 02/12/18 10:00 02/12/18 10:00 - Medications Medications: Current Medications Acetaminophen (Tylenol 325mg Tab) 650 mg PO Q6 PRN PRN Reason: Headache Last Admin: 02/11/18 06:21 Dose: 650 mg Amantadine HCl (Amantadine 100 Mg Cap) 100 mg PO DAILY [facility] Last Admin: 02/12/18 09:16 Dose: 100 mg Aspirin (Aspirin Chewable) 81 mg PO DAILY [facility] Last Admin: 02/12/18 09:16 Dose: 81 mg Carbidopa/Levodopa (Sinemet Cr) 1 tab PO DAILY@0700 [facility] Last Admin: 02/12/18 06:38 Dose: 1 tab Carbidopa/Levodopa (Sinemet) 1 tab PO DAILY@1500 [facility] Last Admin: 02/12/18 16:00 Dose: 1 tab Carbidopa/Levodopa (Sinemet) 2 tab PO DAILY@1330 [facility] Last Admin: 02/12/18 12:57 Dose: 2 tab Docusate Sodium (Colace) 100 mg PO BID [facility] Last Admin: 02/12/18 16:41 Dose: 100 mg Enoxaparin Sodium (Lovenox) 40 mg SC DAILY [facility] PRN Reason: Protocol Last Admin: 02/12/18 09:17 Dose: 40 mg Fludrocortisone Acetate (Florinef) 0.2 mg PO TID [facility] Last Admin: 02/12/18 17:15 Dose: 0.2 mg Ceftriaxone Sodium 1 gm/ (Sodium Chloride) 100 mls @ 100 mls/hr IVPB 0600 [facility] PRN Reason: Protocol Stop: 02/16/18 10:00 Lorazepam (Ativan) 1 mg PO HS PRN PRN Reason: Sleep Last Admin: 02/11/18 21:26 Dose: 1 mg Midodrine (Proamatine) 10 mg PO BID [facility] Last Admin: 02/12/18 17:15 Dose: 10 mg Pantoprazole Sodium (Protonix Ec Tab) 40 mg PO DAILY [facility] Last Admin: 02/12/18 09:18 Dose: 40 mg Quetiapine Fumarate (Seroquel) 25 mg PO HS PRN PRN Reason: Agitation - Labs Labs: 02/12/18 05:15 02/12/18 05:15 PT 12.5 Seconds (9.8-13.1) 02/03/18 05:10 INR 1.1 (0.9-1.2) 02/03/18 05:10 APTT 27.8 Seconds (25.6-37.1) 02/03/18 05:10
[2018-02-13] MEDS: Carbidopa/Levodopa 50/200 CR PO SCH (07:00)
[2018-02-13] MEDS: Enoxaparin 40 mg Syringe SC SCH (09:49)
[2018-02-13] MEDS: Pantoprazole 40 mg EC Tab PO SCH (09:50)
--- NOTE | 2018-02-13 13:14 | PSY.TMCNF ---
Nursing - Vital Signs Vital Signs (Last 8 hours): Vital Signs 02/13/18 02/13/18 08:00 10:26 Temperature 97.5 F L 97.5 F L Pulse Rate 83 83 Respiratory 20 20 Rate Blood Pressure 130/75 130/75 O2 Sat by Pulse 97 Oximetry Pain: 0 - Precautions: Precautions: Fall Prevention, Cardiac/Pulmonary, Pressure Ulcer - Medications/Other Issues Comment: Hypotensive, UTI - Consults Comment: Dr. Liz Huggins, Dr. Henry, Dr. Juares. - Toileting Toileting: Supervision - Bladder Management Bladder Pattern: Normal, Dribbling Voiding Method: Toilet, Urinal, Condom ([place]) Catheter Bladder Management: Supervision - Bowel Management Bowel Pattern: Normal Bowel Management: Supervision Frequency of Accidents: 0 - Transfers Transfers: Minimal Assistance - ADL's ADL's: Minimal Assistance - Pain Management Comments: Abdominal pain - Patient/Family Teaching Comments: Safety, Hypotensive and infection control. - Goals/Time Frame Comments: Per Multidisciplinary team. - Provider Provider: Teagan MOREN RN CRRN Physical Therapy - Bed Mobility Bed Mobility: Supervision, Verbal Cues Comment: bed mob using log rolling method CS - Transfers Sit to Stand: Verbal Cues, Contact Guard - Ambulation Level of Assistance: Verbal Cues, Contact Guard Distance (ft.): 75 Assistive Devices: Rolling Walker - Stair Negotiation Stairs: Level of Assistance: Not Tested - Standing Balance Static Stand: Contact Guard Assist Dynamic Stand: Contact Guard Assist, Minimal Assistance Comment: static stand CG/CS - Pain Management Techniques: Medication - Insight/Carryover Insight/Carryover: Fair - Patient/Family Education Comment: dx related topics, rehab goals, benefits of being OOB, posture, POC, fxnl mob, balance, cardiac prec, safety, DME - Assessment/Plan Assessment: 77 yo male admitted to [facility] acute rehab s/p PD Exac. Pt w/ multiple recent falls and presents w/ BLE pain and impaired strength, balance, sensation , activity tolerance, safety awareness, safety and fxnl mob. Pt w/ chronic hx of orthostatic hypotension. His low BP (symptomatic at times) is currently limiting ambulatory/standing activities being attempted/completed during therapy. Cardiology D/C trialing BLE gary wrap and abdominal binder to address orthostases despite mild success w/ this intervention, and is continuing to adjust meds. Despite all the aforementioned issues, pt has displayed increased indep w/ static standing balance, bed mob and t/f. Cont'd skilled PT indicated to address deficits. Pt's hypotension is negatively impacting his progress. - Goals Timeframe: 3 weeks Goals: 1 flight -8 in steps w/ 2 HR, mod I step through pattern w/ stable BP. RW 300' mod I w/ stable BP. supine <> sit mod I. sit to stand mod I. SPT mod I - Provider License Number: [id number] Occupational Therapy - Arousal/Attention/Orientation Patient Orientation: Person, Place, Time, Appropriate to Age, Appropriate to Situation - ADL/IADL Self Feeding: Set-up Help Grooming: Supervision, Set-up Help Bathing-Upper Extremity: Minimal Assistance Bathing-Lower Extremity: Minimal Assistance Dressing-Upper Extremity: Minimal Assistance Dressing-Lower Extremity: Minimal Assistance Comment: pt reports his assists him with ub dressing particularly with donning shirt - Sitting Balance Static Sitting: Independent with upper extremity support Dynamic Sitting: Requires supervision - Transfers Wheelchair to Bed Transfers: Contact Guard, Minimal Assistance Toilet Transfers: Contact Guard, Minimal Assistance - Wheelchair Management Level of Assistance: Minimal Assistance - Upper Extremity Status Right Upper Extremity Comment: WFL Left Upper Extremity Comment: WFL - Pain Alleviating Techniques: Medication - Insight/Carryover Insight/Carryover: Fair - Patient/Family Education Comment: dx related topics, rehab goals, benefits of being OOB, posture, POC, fxnl mob, balance, cardiac prec, safety, DME - Assessment/Plan Assessment: 77 yo male admitted to [facility] acute rehab s/p PD Exac. Pt w/ multiple recent falls and presents w/ BLE pain and impaired strength, balance, sensation , activity tolerance, safety awareness, safety and fxnl mob. Pt w/ chronic hx of orthostatic hypotension. His low BP (symptomatic at times) is currently limiting ambulatory/standing activities being attempted/completed during therapy. Cardiology D/C trialing BLE gary wrap and abdominal binder to address orthostases despite mild success w/ this intervention, and is continuing to adjust meds. Despite all the aforementioned issues, pt has displayed increased indep w/ static standing balance, bed mob and t/f. Cont'd skilled PT indicated to address deficits. Pt's hypotension is negatively impacting his progress. - Goals Timeframe: 3 weeks Goals: 1 flight -8 in steps w/ 2 HR, mod I step through pattern w/ stable BP. RW 300' mod I w/ stable BP. supine <> sit mod I. sit to stand mod I. SPT mod I - Provider Therapist: RADHA Rios Speech Therapy - Consult Information Patient on Program: Yes Medical Diagnosis: exacerbation of Parkinson disease Treatment Diagnosis: -moderate voice deficits - Assessment Speech/Articulation Impairment: Moderate - Plan Assessment: 77 yo male admitted to [facility] acute rehab s/p PD Exac. Pt w/ multiple recent falls and presents w/ BLE pain and impaired strength, balance, sensation , activity tolerance, safety awareness, safety and fxnl mob. Pt w/ chronic hx of orthostatic hypotension. His low BP (symptomatic at times) is currently limiting ambulatory/standing activities being attempted/completed during therapy. Cardiology D/C trialing BLE gary wrap and abdominal binder to address orthostases despite mild success w/ this intervention, and is continuing to adjust meds. Despite all the aforementioned issues, pt has displayed increased indep w/ static standing balance, bed mob and t/f. Cont'd skilled PT indicated to address deficits. Pt's hypotension is negatively impacting his progress. Plan: Continue Speech/Language Therapy - Provider Therapist: Trisha Carrizales License Number: [id number] Recreational Therapy - Participation Participation: Monitors His/Her Own Leisure Time - Attendance Attendance: Daily - Activities Leisure Activities: Socializing - Socialization Level of Socialization: Initiates/interacts freely with care givers and peer - Diversional Time Diversional Time: enjoys playing cards, watching television - Assessment Assessment/Plan: 77 yo male admitted to [facility] acute rehab s/p PD Exac. Pt w/ multiple recent falls and presents w/ BLE pain and impaired strength, balance, sensation, activity tolerance, safety awareness, safety and fxnl mob. Pt w/ chronic hx of orthostatic hypotension. His low BP (symptomatic at times) is currently limiting ambulatory/standing activities being attempted/completed during therapy. Cardiology D/C trialing BLE gary wrap and abdominal binder to address orthostases despite mild success w/ this intervention, and is continuing to adjust meds. Despite all the aforementioned issues, pt has displayed increased indep w/ static standing balance, bed mob and t/f. Cont'd skilled PT indicated to address deficits. Pt's hypotension is negatively impacting his progress. - Provider Therapist: Gill Alba, [employer] #[id number] Nutrition - Current Diet Current Diet/ Supplement/ Feedings: Regular diet ensure plus 8 ounces 2 per day( 700 kcal and 26 grams of protein) - Appetite Percent Meal Consumed: 50-74% - Comments Comments: Safety, Hypotensive and infection control. - Assessment/Goals/Time Frame Assessment/Goals/Time Frame: Hypotensive, UTI - Provider Provider: Veronica Bah RD Case Management - Psychosocial Assessment Support Systems: Deborah Hightower (spouse)- [phone] Psychological Interventions/Needs: Patient is alert and oriented x3 and able to verbalize needs. Patient is cooperative and motivated for therapy Discharge Concerns: Patient with history of frequent falls at home, patient's spouse with concerns on ability to assist patient at home as she was recently diagnosed with lung CA and requiring weekly treatment. Patient with episode of orthostatic hypotension today, therapy on hold. Patient/Family Meeting: CM met with patient/spouse and rehab team Intervention/Goal/Outcome:: 1. Goal: Intermittent supervision overall. 2. Plan: Home with VNS- refer to [facility]. 3.DME needs ? 4. f/u appts. 5. caregiver training? 6. continued emotional support. 7. tentative discharge date: 02/16/2018 - Discharge Plan Discharge Plan: Home with significant other/family, Home with services Home Services: [facility] - Provider Provider: PORFIRIO Hopper, [employer] License Number: [id number] Rehabilitation Plan - Treatment Plan Treatment Plan: Physical Therapy, Occupational Therapy, Speech, Dietary, Patient /Family Education - Discharge Plan Estimated Date of Discharge: 02/16/18 Discharge to: Home
--- NOTE | 2018-02-13 13:36 | CP.PCM.PN ---
Subjective - Date & Time of Evaluation Date of Evaluation: 02/13/18 Time of Evaluation: 13:35 - Subjective Subjective: Patient seen in the room with present now on IV ABX BP was more stable and did some rehab not yet ready to d/c home given all of the medical issues will get upstairs to TCU for short [facility] stay. is happy with this as she also starts radiation next week Objective - Vital Signs/Intake and Output Vital Signs (last 24 hours): Temp Pulse Resp BP Pulse Ox 97.5 F L 83 20 130/75 97 02/13/18 10:26 02/13/18 10:26 02/13/18 10:26 02/13/18 10:26 02/13/18 08:00 - Medications Medications: Current Medications Acetaminophen (Tylenol 325mg Tab) 650 mg PO Q6 PRN PRN Reason: Pain, moderate (4-7) Last Admin: 02/13/18 09:46 Dose: 650 mg Amantadine HCl (Amantadine 100 Mg Cap) 100 mg PO DAILY [facility] Last Admin: 02/13/18 09:48 Dose: 100 mg Aspirin (Aspirin Chewable) 81 mg PO DAILY [facility] Last Admin: 02/13/18 09:48 Dose: 81 mg Carbidopa/Levodopa (Sinemet Cr) 1 tab PO DAILY@0700 [facility] Last Admin: 02/13/18 07:00 Dose: 1 tab Carbidopa/Levodopa (Sinemet) 1 tab PO DAILY@1500 [facility] Last Admin: 02/12/18 16:00 Dose: 1 tab Carbidopa/Levodopa (Sinemet) 2 tab PO DAILY@1330 [facility] Last Admin: 02/13/18 13:06 Dose: 2 tab Docusate Sodium (Colace) 100 mg PO BID [facility] Last Admin: 02/13/18 09:48 Dose: 100 mg Enoxaparin Sodium (Lovenox) 40 mg SC DAILY [facility] PRN Reason: Protocol Last Admin: 02/13/18 09:49 Dose: 40 mg Fludrocortisone Acetate (Florinef) 0.2 mg PO TID [facility] Last Admin: 02/13/18 12:57 Dose: 0.2 mg Ceftriaxone Sodium 1 gm/ (Sodium Chloride) 100 mls @ 100 mls/hr IVPB 0600 [facility] PRN Reason: Protocol Stop: 02/16/18 10:00 Last Admin: 02/13/18 05:51 Dose: 100 mls/hr Lorazepam (Ativan) 1 mg PO HS PRN PRN Reason: Sleep Last Admin: 02/12/18 22:32 Dose: 1 mg Midodrine (Proamatine) 10 mg PO BID [facility] Last Admin: 02/13/18 09:49 Dose: 10 mg Pantoprazole Sodium (Protonix Ec Tab) 40 mg PO DAILY [facility] Last Admin: 02/13/18 09:50 Dose: 40 mg Quetiapine Fumarate (Seroquel) 25 mg PO HS PRN PRN Reason: Agitation - Labs Labs: 02/12/18 05:15 02/12/18 05:15 PT 12.5 Seconds (9.8-13.1) 02/03/18 05:10 INR 1.1 (0.9-1.2) 02/03/18 05:10 APTT 27.8 Seconds (25.6-37.1) 02/03/18 05:10
[2018-02-14] MEDS: Carbidopa/Levodopa 50/200 CR PO SCH (07:07)
[2018-02-14] MEDS: Pantoprazole 40 mg EC Tab PO SCH (08:12)
[2018-02-14] MEDS: Enoxaparin 40 mg Syringe SC SCH (08:12)
--- NOTE | 2018-02-14 12:17 | CP.PCM.PN ---
Subjective - Date & Time of Evaluation Date of Evaluation: 02/14/18 Time of Evaluation: 12:17 - Subjective Subjective: Mr. Hightower was seen and examined at the bedside. He is alert, oriented in all spheres. He denies any headache, dizziness, still claims of lower extremities weakness. He is able to move all extremities spontaneously with no tremors noted in his extremities. He is able to feed himself independently. He is able to to ambulate with walker in steady gait. There was no untoward events overnight. Objective - Vital Signs/Intake and Output Vital Signs (last 24 hours): Temp Pulse Resp BP Pulse Ox 97.2 F L 77 19 99/52 L 96 02/14/18 08:39 02/14/18 08:39 02/14/18 08:39 02/14/18 08:39 02/14/18 08:39 - Medications Medications: Current Medications Acetaminophen (Tylenol 325mg Tab) 650 mg PO Q6 PRN PRN Reason: Pain, moderate (4-7) Last Admin: 02/13/18 09:46 Dose: 650 mg Amantadine HCl (Amantadine 100 Mg Cap) 100 mg PO DAILY [facility] Last Admin: 02/14/18 08:11 Dose: 100 mg Aspirin (Aspirin Chewable) 81 mg PO DAILY [facility] Last Admin: 02/14/18 08:11 Dose: 81 mg Carbidopa/Levodopa (Sinemet Cr) 1 tab PO DAILY@0700 [facility] Last Admin: 02/14/18 07:07 Dose: 1 tab Carbidopa/Levodopa (Sinemet) 1 tab PO DAILY@1500 [facility] Last Admin: 02/13/18 16:35 Dose: 1 tab Carbidopa/Levodopa (Sinemet) 2 tab PO DAILY@1330 [facility] Last Admin: 02/13/18 13:06 Dose: 2 tab Docusate Sodium (Colace) 100 mg PO BID [facility] Last Admin: 02/14/18 08:11 Dose: 100 mg Enoxaparin Sodium (Lovenox) 40 mg SC DAILY [facility] PRN Reason: Protocol Last Admin: 02/14/18 08:12 Dose: 40 mg Fludrocortisone Acetate (Florinef) 0.2 mg PO TID [facility] Last Admin: 02/14/18 08:11 Dose: 0.2 mg Ceftriaxone Sodium 1 gm/ (Sodium Chloride) 100 mls @ 100 mls/hr IVPB 0600 [facility] PRN Reason: Protocol Stop: 02/16/18 10:00 Last Admin: 02/14/18 05:51 Dose: 100 mls/hr Lorazepam (Ativan) 1 mg PO HS PRN PRN Reason: Sleep Last Admin: 02/13/18 22:07 Dose: 1 mg Midodrine (Proamatine) 10 mg PO BID [facility] Last Admin: 02/14/18 08:12 Dose: 10 mg Pantoprazole Sodium (Protonix Ec Tab) 40 mg PO DAILY [facility] Last Admin: 02/14/18 08:12 Dose: 40 mg Quetiapine Fumarate (Seroquel) 25 mg PO HS PRN PRN Reason: Agitation - Labs Labs: 02/12/18 05:15 02/12/18 05:15 PT 12.5 Seconds (9.8-13.1) 02/03/18 05:10 INR 1.1 (0.9-1.2) 02/03/18 05:10 APTT 27.8 Seconds (25.6-37.1) 02/03/18 05:10 - Constitutional Appears: No Acute Distress - Head Exam Head Exam: NORMAL INSPECTION - Neurological Exam Neurological Exam: Alert, Awake, Oriented x3 Neuro motor strength exam: Left Upper Extremity: 5, Right Upper Extremity: 5, Left Lower Extremity: 4, Right Lower Extremity: 4 Additional comments: Neurological unchanged from previous examination. Assessment and Plan (1) Parkinsons disease Assessment & Plan: Case discussed with Dr. Juares, continue all current medical, physical, and occupational therapies. Recommend to treat any infection. Recommend to increase po intake and treat any underlying infection. Status: Acute
--- NOTE | 2018-02-14 15:47 | CP.PCM.PN ---
Subjective - Date & Time of Evaluation Date of Evaluation: 02/14/18 Time of Evaluation: 11:00 - Subjective Subjective: Patient seen and examined. Still with orthostatic hypotension but asymptomatic. Objective - Vital Signs/Intake and Output Vital Signs (last 24 hours): Temp Pulse Resp BP Pulse Ox 97.2 F L 77 19 99/52 L 96 02/14/18 08:39 02/14/18 08:39 02/14/18 08:39 02/14/18 08:39 02/14/18 08:39 - Medications Medications: Current Medications Acetaminophen (Tylenol 325mg Tab) 650 mg PO Q6 PRN PRN Reason: Pain, moderate (4-7) Last Admin: 02/13/18 09:46 Dose: 650 mg Amantadine HCl (Amantadine 100 Mg Cap) 100 mg PO DAILY [facility] Last Admin: 02/14/18 08:11 Dose: 100 mg Aspirin (Aspirin Chewable) 81 mg PO DAILY [facility] Last Admin: 02/14/18 08:11 Dose: 81 mg Carbidopa/Levodopa (Sinemet Cr) 1 tab PO DAILY@0700 [facility] Last Admin: 02/14/18 07:07 Dose: 1 tab Carbidopa/Levodopa (Sinemet) 1 tab PO DAILY@1500 [facility] Last Admin: 02/14/18 15:33 Dose: 1 tab Carbidopa/Levodopa (Sinemet) 2 tab PO DAILY@1330 [facility] Last Admin: 02/14/18 12:29 Dose: 2 tab Docusate Sodium (Colace) 100 mg PO BID [facility] Last Admin: 02/14/18 08:11 Dose: 100 mg Enoxaparin Sodium (Lovenox) 40 mg SC DAILY [facility] PRN Reason: Protocol Last Admin: 02/14/18 08:12 Dose: 40 mg Fludrocortisone Acetate (Florinef) 0.2 mg PO TID [facility] Last Admin: 02/14/18 12:30 Dose: 0.2 mg Ceftriaxone Sodium 1 gm/ (Sodium Chloride) 100 mls @ 100 mls/hr IVPB 0600 [facility] PRN Reason: Protocol Stop: 02/16/18 10:00 Last Admin: 02/14/18 05:51 Dose: 100 mls/hr Lorazepam (Ativan) 1 mg PO HS PRN PRN Reason: Sleep Last Admin: 02/13/18 22:07 Dose: 1 mg Midodrine (Proamatine) 10 mg PO BID [facility] Last Admin: 02/14/18 08:12 Dose: 10 mg Pantoprazole Sodium (Protonix Ec Tab) 40 mg PO DAILY [facility] Last Admin: 02/14/18 08:12 Dose: 40 mg Quetiapine Fumarate (Seroquel) 25 mg PO HS PRN PRN Reason: Agitation - Labs Labs: 02/12/18 05:15 02/12/18 05:15 PT 12.5 Seconds (9.8-13.1) 02/03/18 05:10 INR 1.1 (0.9-1.2) 02/03/18 05:10 APTT 27.8 Seconds (25.6-37.1) 02/03/18 05:10 - Constitutional Appears: No Acute Distress - Head Exam Head Exam: ATRAUMATIC - Eye Exam Eye Exam: absent: Scleral icterus - ENT Exam ENT Exam: Mucous Membranes Moist - Neck Exam Neck Exam: absent: Meningismus - Respiratory Exam Respiratory Exam: absent: Rales, Rhonchi, Wheezes, Respiratory Distress - Cardiovascular Exam Cardiovascular Exam: REGULAR RHYTHM, +S1, +S2 - GI/Abdominal Exam GI & Abdominal Exam: Soft. absent: Tenderness - Rectal Exam Rectal Exam: Deferred - Neurological Exam Neurological Exam: Alert, Oriented x3 - Psychiatric Exam Psychiatric exam: Normal Affect - Skin Skin Exam: Dry, Intact Assessment and Plan - Assessment and Plan (Free Text) Assessment: 77 yo male with history of Parkinson's Disease, admitted at [facility] on 01/31/18 because of frequent falls. He was transferred to [facility] and admitted at [facility] for continuation of therapy. 1. Parkinson's Disease continue Sinemet and Amantadine Dr Juares on neuro consult 2. Orthostatic Hypotension maybe the cause of frequent falls cardiology consult with Dr Singh appreciated still with significant orthostatic hypotension inspite of increased Florinef and Midodrine Florinef 0.2mg PO TID Midodrine 10mg PO BID may continue therapy since patient is asymptomatic 3. CAD continue ASA 4. UTI urine culture: Strep Viridans on Ceftriaxone 1gm IV (3rd day) 5. DVT prophylaxis continue Lovenox
--- NOTE | 2018-02-14 18:35 | CP.PCM.PN ---
Subjective - Date & Time of Evaluation Date of Evaluation: 02/14/18 Time of Evaluation: 18:35 - Subjective Subjective: patient seen in the room doing ok denies sob/cp set for transfer to TCU on 02/16/18. finally making good gains needs further therapy Objective - Vital Signs/Intake and Output Vital Signs (last 24 hours): Temp Pulse Resp BP Pulse Ox 97.2 F L 77 19 99/52 L 96 02/14/18 08:39 02/14/18 08:39 02/14/18 08:39 02/14/18 08:39 02/14/18 08:39 - Medications Medications: Current Medications Acetaminophen (Tylenol 325mg Tab) 650 mg PO Q6 PRN PRN Reason: Pain, moderate (4-7) Last Admin: 02/13/18 09:46 Dose: 650 mg Amantadine HCl (Amantadine 100 Mg Cap) 100 mg PO DAILY [facility] Last Admin: 02/14/18 08:11 Dose: 100 mg Aspirin (Aspirin Chewable) 81 mg PO DAILY [facility] Last Admin: 02/14/18 08:11 Dose: 81 mg Carbidopa/Levodopa (Sinemet Cr) 1 tab PO DAILY@0700 [facility] Last Admin: 02/14/18 07:07 Dose: 1 tab Carbidopa/Levodopa (Sinemet) 1 tab PO DAILY@1500 [facility] Last Admin: 02/14/18 15:33 Dose: 1 tab Carbidopa/Levodopa (Sinemet) 2 tab PO DAILY@1330 [facility] Last Admin: 02/14/18 12:29 Dose: 2 tab Docusate Sodium (Colace) 100 mg PO BID [facility] Last Admin: 02/14/18 16:28 Dose: 100 mg Enoxaparin Sodium (Lovenox) 40 mg SC DAILY [facility] PRN Reason: Protocol Last Admin: 02/14/18 08:12 Dose: 40 mg Fludrocortisone Acetate (Florinef) 0.2 mg PO TID [facility] Last Admin: 02/14/18 16:29 Dose: 0.2 mg Ceftriaxone Sodium 1 gm/ (Sodium Chloride) 100 mls @ 100 mls/hr IVPB 0600 [facility] PRN Reason: Protocol Stop: 02/16/18 10:00 Last Admin: 02/14/18 05:51 Dose: 100 mls/hr Lorazepam (Ativan) 1 mg PO PRN PRN Reason: Sleep Last Admin: 02/13/18 22:07 Dose: 1 mg Midodrine (Proamatine) 10 mg PO BID [facility] Last Admin: 02/14/18 16:28 Dose: 10 mg Pantoprazole Sodium (Protonix Ec Tab) 40 mg PO DAILY [facility] Last Admin: 02/14/18 08:12 Dose: 40 mg Quetiapine Fumarate (Seroquel) 25 mg PO HS PRN PRN Reason: Agitation - Labs Labs: 02/12/18 05:15 02/12/18 05:15 PT 12.5 Seconds (9.8-13.1) 02/03/18 05:10 INR 1.1 (0.9-1.2) 02/03/18 05:10 APTT 27.8 Seconds (25.6-37.1) 02/03/18 05:10
[2018-02-15] MEDS: Carbidopa/Levodopa 50/200 CR PO SCH (06:56)
[2018-02-15 06:57] LABS: HEMOGLOBIN 11.4 g/dL (12.0-18.0); MEAN CELL VOLUME 89.8 fl (80.0-94.0); MEAN CORPUSCULAR HEMOGLOBIN 29.3 pg (27.0-31.0); MEAN CORPUSCULAR HGB CONC 32.6 g/dL (33.0-37.0); RBC 3.91 Mil/uL (4.40-5.90); RED CELL DISTRIBUTION WIDTH 14.7 % (11.5-14.5); WHITE BLOOD COUNT 6.9 K/uL (4.8-10.8)
[2018-02-15 07:02] LABS: BLOOD UREA NITROGEN 32 mg/dl (9-20); CALCIUM 8.6 mg/dL (8.4-10.2); GFR AFRICAN-AMERICAN > 60; GFR NON-AFRICAN AMERICAN > 60
[2018-02-15] MEDS: Enoxaparin 40 mg Syringe SC SCH (08:00)
[2018-02-15] MEDS: Pantoprazole 40 mg EC Tab PO SCH (08:01)
[2018-02-15] MEDS ORDERED: Potassium Chloride 20 mEq ER Tab PO ONE (10:19)
--- NOTE | 2018-02-15 12:12 | CP.PCM.PN ---
Subjective - Date & Time of Evaluation Date of Evaluation: 02/15/18 Time of Evaluation: 12:12 - Subjective Subjective: Mr. Hightower was seen and examined at the bedside. He is alert, oriented in all spheres. He denies any headache, dizziness, still claims of lower extremities weakness. He is able to move all extremities spontaneously with no tremors noted in his extremities. He is able to feed himself independently. He is able to to ambulate with walker in steady gait two times. There was no untoward events overnight. Objective - Vital Signs/Intake and Output Vital Signs (last 24 hours): Temp Pulse Resp BP Pulse Ox 97.0 F L 81 20 118/57 L 98 02/15/18 08:18 02/15/18 08:18 02/15/18 08:18 02/15/18 08:18 02/15/18 08:18 - Medications Medications: Current Medications Acetaminophen (Tylenol 325mg Tab) 650 mg PO Q6 PRN PRN Reason: Pain, moderate (4-7) Last Admin: 02/13/18 09:46 Dose: 650 mg Amantadine HCl (Amantadine 100 Mg Cap) 100 mg PO DAILY [facility] Last Admin: 02/15/18 08:01 Dose: 100 mg Aspirin (Aspirin Chewable) 81 mg PO DAILY [facility] Last Admin: 02/15/18 08:01 Dose: 81 mg Carbidopa/Levodopa (Sinemet Cr) 1 tab PO DAILY@0700 [facility] Last Admin: 02/15/18 06:56 Dose: 1 tab Carbidopa/Levodopa (Sinemet) 1 tab PO DAILY@1500 [facility] Last Admin: 02/14/18 15:33 Dose: 1 tab Carbidopa/Levodopa (Sinemet) 2 tab PO DAILY@1330 [facility] Last Admin: 02/14/18 12:29 Dose: 2 tab Docusate Sodium (Colace) 100 mg PO BID [facility] Last Admin: 02/15/18 08:01 Dose: 100 mg Enoxaparin Sodium (Lovenox) 40 mg SC DAILY [facility] PRN Reason: Protocol Last Admin: 02/15/18 08:00 Dose: 40 mg Fludrocortisone Acetate (Florinef) 0.2 mg PO TID [facility] Last Admin: 02/15/18 08:00 Dose: 0.2 mg Ceftriaxone Sodium 1 gm/ (Sodium Chloride) 100 mls @ 100 mls/hr IVPB 0600 [facility] PRN Reason: Protocol Stop: 02/16/18 10:00 Last Admin: 02/15/18 05:47 Dose: 100 mls/hr Lorazepam (Ativan) 1 mg PO HS PRN PRN Reason: Sleep Last Admin: 02/14/18 21:31 Dose: 1 mg Midodrine (Proamatine) 10 mg PO BID [facility] Last Admin: 02/15/18 08:01 Dose: 10 mg Pantoprazole Sodium (Protonix Ec Tab) 40 mg PO DAILY [facility] Last Admin: 02/15/18 08:01 Dose: 40 mg Quetiapine Fumarate (Seroquel) 25 mg PO HS PRN PRN Reason: Agitation - Labs Labs: 02/15/18 06:35 02/15/18 06:35 PT 12.5 Seconds (9.8-13.1) 02/03/18 05:10 INR 1.1 (0.9-1.2) 02/03/18 05:10 APTT 27.8 Seconds (25.6-37.1) 02/03/18 05:10 - Constitutional Appears: No Acute Distress - Head Exam Head Exam: NORMAL INSPECTION - Neurological Exam Neurological Exam: Alert, Awake Neuro motor strength exam: Left Upper Extremity: 5, Right Upper Extremity: 5, Left Lower Extremity: 3, Right Lower Extremity: 3 Additional comments: Neurological unchanged from previous examination. Assessment and Plan (1) Parkinsons disease Assessment & Plan: Case discussed with Dr. Juares, continue all current medical, physical, and occupational therapies. Recommend to treat any infection. Recommend to increase po intake and treat any underlying infection. Status: Acute
[2018-02-16] MEDS: Carbidopa/Levodopa 50/200 CR PO SCH (07:08)
[2018-02-16 08:22] VITALS: BP 123/77; PULSE 70; RESP 19; TEMP 97.3; O2SAT 98
[2018-02-16] MEDS: Enoxaparin 40 mg Syringe SC SCH (08:45)
[2018-02-16] MEDS: Pantoprazole 40 mg EC Tab PO SCH (08:46)
--- NOTE | 2018-02-16 10:00 | CP.PCM.PN ---
Subjective - Date & Time of Evaluation Date of Evaluation: 02/16/18 Time of Evaluation: 09:59 - Subjective Subjective: Patient seen in PT BP has been stable and he has been able to participate in therapies Set for transfers to TCU later today to begin radiation 02/19/18 Objective - Vital Signs/Intake and Output Vital Signs (last 24 hours): Temp Pulse Resp BP Pulse Ox 97.3 F L 70 19 123/77 98 02/16/18 08:00 02/16/18 08:00 02/16/18 08:00 02/16/18 08:00 02/16/18 08:00 - Medications Medications: Current Medications Acetaminophen (Tylenol 325mg Tab) 650 mg PO Q6 PRN PRN Reason: Pain, moderate (4-7) Last Admin: 02/13/18 09:46 Dose: 650 mg Amantadine HCl (Amantadine 100 Mg Cap) 100 mg PO DAILY [facility] Last Admin: 02/16/18 08:45 Dose: 100 mg Aspirin (Aspirin Chewable) 81 mg PO DAILY [facility] Last Admin: 02/16/18 08:45 Dose: 81 mg Carbidopa/Levodopa (Sinemet Cr) 1 tab PO DAILY@0700 [facility] Last Admin: 02/16/18 07:08 Dose: 1 tab Carbidopa/Levodopa (Sinemet) 1 tab PO DAILY@1500 [facility] Last Admin: 02/15/18 15:19 Dose: 1 tab Carbidopa/Levodopa (Sinemet) 2 tab PO DAILY@1330 [facility] Last Admin: 02/15/18 13:15 Dose: 2 tab Docusate Sodium (Colace) 100 mg PO BID [facility] Last Admin: 02/16/18 08:45 Dose: 100 mg Enoxaparin Sodium (Lovenox) 40 mg SC DAILY [facility] PRN Reason: Protocol Last Admin: 02/16/18 08:45 Dose: 40 mg Fludrocortisone Acetate (Florinef) 0.2 mg PO TID [facility] Last Admin: 02/16/18 08:45 Dose: 0.2 mg Ceftriaxone Sodium 1 gm/ (Sodium Chloride) 100 mls @ 100 mls/hr IVPB 0600 [facility] PRN Reason: Protocol Stop: 02/16/18 10:00 Last Admin: 02/16/18 05:50 Dose: 100 mls/hr Lorazepam (Ativan) 1 mg PO HS PRN PRN Reason: Sleep Last Admin: 02/15/18 21:38 Dose: 1 mg Midodrine (Proamatine) 10 mg PO BID [facility] Last Admin: 02/16/18 08:46 Dose: 10 mg Pantoprazole Sodium (Protonix Ec Tab) 40 mg PO DAILY [facility] Last Admin: 02/16/18 08:46 Dose: 40 mg Quetiapine Fumarate (Seroquel) 25 mg PO HS PRN PRN Reason: Agitation - Labs Labs: 02/15/18 06:35 02/15/18 06:35 PT 12.5 Seconds (9.8-13.1) 02/03/18 05:10 INR 1.1 (0.9-1.2) 02/03/18 05:10 APTT 27.8 Seconds (25.6-37.1) 02/03/18 05:10
--- NOTE | 2018-02-16 11:38 | CP.PCM.DIS ---
Provider - Provider Date of Admission: 02/02/18 21:09 Attending physician: Preet Mcfadden Consults: Neurology: Dr. Juares Cardiology: Dr. Quinten Huggins Physiatry: Dr. Henry Time Spent in preparation of Discharge (in minutes): 15 Hospital Course - Lab Results Lab Results: Micro Results 02/09/18 14:55 Urine,Catheterized Urine Culture - Final Streptococcus Viridans Most Recent Lab Values WBC 6.9 K/uL (4.8-10.8) 02/15/18 06:35 RBC 3.91 Mil/uL (4.40-5.90) L 02/15/18 06:35 Hgb 11.4 g/dL (12.0-18.0) L 02/15/18 06:35 Hct 35.1 % (35.0-51.0) 02/15/18 06:35 MCV 89.8 fl (80.0-94.0) 02/15/18 06:35 MCH 29.3 pg (27.0-31.0) 02/15/18 06:35 MCHC 32.6 g/dL (33.0-37.0) L 02/15/18 06:35 RDW 14.7 % (11.5-14.5) H 02/15/18 06:35 Plt Count 236 K/uL (130-400) 02/15/18 06:35 MPV 8.5 fl (7.2-11.7) 02/03/18 05:10 Neut % (Auto) 69.6 % (50.0-75.0) 02/03/18 05:10 Lymph % (Auto) 18.5 % (20.0-40.0) L 02/03/18 05:10 [place] % (Auto) 8.2 % (0.0-10.0) 02/03/18 05:10 Eos % (Auto) 2.6 % (0.0-4.0) 02/03/18 05:10 Baso % (Auto) 1.1 % (0.0-2.0) 02/03/18 05:10 Neut # (Auto) 4.5 K/uL (1.8-7.0) 02/03/18 05:10 Lymph # (Auto) 1.2 K/uL (1.0-4.3) 02/03/18 05:10 [place] # (Auto) 0.5 K/uL (0.0-0.8) 02/03/18 05:10 Eos # (Auto) 0.2 K/uL (0.0-0.7) 02/03/18 05:10 Baso # (Auto) 0.1 K/uL (0.0-0.2) 02/03/18 05:10 PT 12.5 Seconds (9.8-13.1) 02/03/18 05:10 INR 1.1 (0.9-1.2) 02/03/18 05:10 APTT 27.8 Seconds (25.6-37.1) 02/03/18 05:10 Sodium 142 mmol/l (132-148) 02/15/18 06:35 Potassium 3.4 MMOL/L (3.6-5.0) L 02/15/18 06:35 Chloride 106 mmol/L (98-107) 02/15/18 06:35 Carbon Dioxide 27 mmol/L (22-30) 02/15/18 06:35 Anion Gap 12 (10-20) 02/15/18 06:35 BUN 32 mg/dl (9-20) H 02/15/18 06:35 Creatinine 1.1 mg/dl (0.8-1.5) 02/15/18 06:35 Est GFR ( Amer) > 60 02/15/18 06:35 Est GFR (Non-Af Amer) > 60 02/15/18 06:35 Random Glucose 88 mg/dL (75-110) 02/15/18 06:35 Calcium 8.6 mg/dL (8.4-10.2) 02/15/18 06:35 Total Bilirubin 0.7 mg/dl (0.2-1.3) 02/03/18 05:10 AST 24 U/L (17-59) 02/03/18 05:10 ALT 30 U/L (21-72) 02/03/18 05:10 Alkaline Phosphatase 105 U/L (38-126) 02/03/18 05:10 Total Protein 7.5 G/DL (6.3-8.2) 02/03/18 05:10 Albumin 3.5 g/dL (3.5-5.0) 02/03/18 05:10 Globulin 4.0 gm/dL (2.2-3.9) H 02/03/18 05:10 Albumin/Globulin Ratio 0.9 (1.0-2.1) L 02/03/18 05:10 Triglycerides 155 mg/DL (0-149) H 02/03/18 05:10 Cholesterol 147 mg/dL (0-199) 02/03/18 05:10 LDL Cholesterol Direct 84 mg/dL (0-129) 02/03/18 05:10 HDL Cholesterol 29 MG/DL (30-70) L 02/03/18 05:10 Urine Color Yellow (YELLOW) 02/08/18 18:55 Urine Clarity Cloudy (Clear) 02/08/18 18:55 Urine pH 5.0 (5.0-8.0) 02/08/18 18:55 Ur Specific [place] 1.025 (1.003-1.030) 02/08/18 18:55 Urine Protein 30 mg/dL (NEGATIVE) 02/08/18 18:55 Urine Glucose (UA) Neg mg/dL (Normal) 02/08/18 18:55 Urine Ketones Trace mg/dL (NEGATIVE) 02/08/18 18:55 Urine Blood Negative (NEGATIVE) 02/08/18 18:55 Urine Nitrate Negative (NEGATIVE) 02/08/18 18:55 Urine Bilirubin Negative (NEGATIVE) 02/08/18 18:55 Urine Urobilinogen 2.0 mg/dL (0.2-1.0) 02/08/18 18:55 Ur Leukocyte Esterase Trace [place]/uL (Negative) 02/08/18 18:55 Urine RBC (Auto) 3 /hpf (0-3) 02/08/18 18:55 Urine Microscopic WBC 44 /hpf (0-5) H 02/08/18 18:55 Ur Squamous Epith Cells < 1 /hpf (0-5) 02/08/18 18:55 Amorphous Sediment Rare /ul (<OCC) H 02/08/18 18:55 Hyaline Casts 3-5 /hpf (0-2) H 02/08/18 18:55 - Hospital Course Hospital Course: 77 yo male with history of Parkinson's Disease, admitted at [facility] on 01/31/18 because of frequent falls, orthostatic hypotension, and for deconditioning. . He was transferred to [facility] and admitted at [facility] for continuation of therapy. He is now being discharged to the transitional care unit for continued IV antibiotics and for further continuation of therapy. 1. Parkinson's Disease- chronic continue Sinemet and Amantadine Dr Juares on neuro consult 2. Orthostatic Hypotension likely the cause of frequent falls cardiology consult with Dr Singh appreciated still with significant orthostatic hypotension inspite of increased Florinef and Midodrine Florinef 0.2mg PO TID Midodrine 10mg PO BID may continue therapy since patient is asymptomatic 3. CAD continue ASA 4. UTI urine culture: Strep Viridans on Ceftriaxone 1gm IV (5th day) 5. DVT prophylaxis continue Lovenox Discharge Exam - Head Exam Head Exam: NORMAL INSPECTION - Additional Findings Additional findings: Physical exam: Constitutional- cooperative, awake, alert Head- NCAT, PERRL Eye- PERRL, EOMI ENT- normal exam, MMM. Neck- normal inspection, supple, no JVD Respiratory- CTAB, no wheezes rales rhonchi Cardiovascular- RRR, +S1, +S2 no MRG GI/Abdominal- normal bowel sounds, soft, no mass, no hsm Skin- warm, dry Extremities Exam- normal capillary refill, normal inspection Neurological Exam- alert, awake, oriented Psych- normal mood, normal affect Discharge Plan - Follow Up Plan Condition: GOOD Disposition: TRANSF TO SNF
--- NOTE | 2018-02-16 12:00 | CP.PCM.PN ---
Subjective - Date & Time of Evaluation Date of Evaluation: 02/16/18 Time of Evaluation: 12:00 - Subjective Subjective: Mr. Hightower was seen and examined at the bedside. He is alert, oriented in all spheres. He denies any headache, dizziness, still claims of lower extremities weakness. He is able to move all extremities spontaneously with no tremors noted in his extremities. He is able to feed himself independently with poor fluid intake.. He is able to to ambulate with walker in steady gait within his room.He also claims of being transferred to TCU to continue his therapy. He is also fixated with his blood pressure, but if he wants to ambulate, he will ambulate without complaining of dizziness.There was no untoward events overnight. Objective - Vital Signs/Intake and Output Vital Signs (last 24 hours): Temp Pulse Resp BP Pulse Ox 97.3 F L 70 19 123/77 98 02/16/18 08:00 02/16/18 08:00 02/16/18 08:00 02/16/18 08:00 02/16/18 08:00 - Medications Medications: Current Medications Acetaminophen (Tylenol 325mg Tab) 650 mg PO Q6 PRN PRN Reason: Pain, moderate (4-7) Last Admin: 02/13/18 09:46 Dose: 650 mg Amantadine HCl (Amantadine 100 Mg Cap) 100 mg PO DAILY [facility] Last Admin: 02/16/18 08:45 Dose: 100 mg Aspirin (Aspirin Chewable) 81 mg PO DAILY [facility] Last Admin: 02/16/18 08:45 Dose: 81 mg Carbidopa/Levodopa (Sinemet Cr) 1 tab PO DAILY@0700 [facility] Last Admin: 02/16/18 07:08 Dose: 1 tab Carbidopa/Levodopa (Sinemet) 1 tab PO DAILY@1500 [facility] Last Admin: 02/15/18 15:19 Dose: 1 tab Carbidopa/Levodopa (Sinemet) 2 tab PO DAILY@1330 [facility] Last Admin: 02/15/18 13:15 Dose: 2 tab Docusate Sodium (Colace) 100 mg PO BID [facility] Last Admin: 02/16/18 08:45 Dose: 100 mg Enoxaparin Sodium (Lovenox) 40 mg SC DAILY [facility] PRN Reason: Protocol Last Admin: 02/16/18 08:45 Dose: 40 mg Fludrocortisone Acetate (Florinef) 0.2 mg PO TID [facility] Last Admin: 02/16/18 08:45 Dose: 0.2 mg Lorazepam (Ativan) 1 mg PO HS PRN PRN Reason: Sleep Last Admin: 02/15/18 21:38 Dose: 1 mg Midodrine (Proamatine) 10 mg PO BID [facility] Last Admin: 02/16/18 08:46 Dose: 10 mg Pantoprazole Sodium (Protonix Ec Tab) 40 mg PO DAILY [facility] Last Admin: 02/16/18 08:46 Dose: 40 mg Quetiapine Fumarate (Seroquel) 25 mg PO HS PRN PRN Reason: Agitation - Labs Labs: 02/15/18 06:35 02/15/18 06:35 PT 12.5 Seconds (9.8-13.1) 02/03/18 05:10 INR 1.1 (0.9-1.2) 02/03/18 05:10 APTT 27.8 Seconds (25.6-37.1) 02/03/18 05:10 - Constitutional Appears: No Acute Distress - Head Exam Head Exam: NORMAL INSPECTION - Neurological Exam Neurological Exam: Alert, Awake, Oriented x3 Neuro motor strength exam: Left Upper Extremity: 5, Right Upper Extremity: 5, Left Lower Extremity: 3, Right Lower Extremity: 3 Additional comments: Neurological unchanged from previous examination. Assessment and Plan (1) Parkinsons disease Assessment & Plan: Case discussed with Dr. Juares, continue all current medical, physical, and occupational therapies. Recommend to treat any infection. Recommend to increase po intake and treat any underlying infection. Status: Acute
== END 2018-02-16 14:30 | DRG 312 ==
LOC: EDSEX 21:09
PROVIDERS: ADMIT Internal Medicine; ATTEND Internal Medicine
PROC: F08Z1FZ Dressing Techniques Treatment using Assistive, Adaptive, Supportive or Protective Equipment (ICD-10-PCS; principal; 2018-02-02)
PROC: F07Z9FZ Gait Training/Functional Ambulation Treatment using Assistive, Adaptive, Supportive or Protective Equipment (ICD-10-PCS; 2018-02-02)
PROC: F07Z5FZ Bed Mobility Treatment using Assistive, Adaptive, Supportive or Protective Equipment (ICD-10-PCS; 2018-02-02)
PROC: F07Z8FZ Transfer Training Treatment using Assistive, Adaptive, Supportive or Protective Equipment (ICD-10-PCS; 2018-02-02)
PROC: F06Z6ZZ Communicative/Cognitive Integration Skills Treatment (ICD-10-PCS; 2018-02-02)
DX: I95.1 Orthostatic hypotension (principal); N39.0 Urinary tract infection, site not specified; G20 Parkinson's disease; I25.10 Atherosclerotic heart disease of native coronary artery without angina pectoris; Z95.5 Presence of coronary angioplasty implant and graft; Z87.891 Personal history of nicotine dependence; K21.9 Gastro-esophageal reflux disease without esophagitis; N40.0 Benign prostatic hyperplasia without lower urinary tract symptoms; Z88.6 Allergy status to analgesic agent; F41.9 Anxiety disorder, unspecified; M48.07 Spinal stenosis, lumbosacral region; M54.17 Radiculopathy, lumbosacral region; B95.4 Other streptococcus as the cause of diseases classified elsewhere; R29.6 Repeated falls; I10 Essential (primary) hypertension

== ENCOUNTER 2018-02-16 14:06 | Inpatient (IN) | payer OTHER, MEDICARE, BC ==
[2018-02-16 14:36] VITALS: BMI 20.7
[2018-02-17] MEDS: Carbidopa/Levodopa 50/200 CR PO SCH (06:21)
[2018-02-17 08:05] LABS: HEMOGLOBIN 11.2 g/dL (12.0-18.0); MEAN CELL VOLUME 88.1 fl (80.0-94.0); MEAN CORPUSCULAR HEMOGLOBIN 29.6 pg (27.0-31.0); MEAN CORPUSCULAR HGB CONC 33.6 g/dL (33.0-37.0); RBC 3.78 Mil/uL (4.40-5.90); RED CELL DISTRIBUTION WIDTH 14.8 % (11.5-14.5); WHITE BLOOD COUNT 7.4 K/uL (4.8-10.8)
[2018-02-17 08:18] LABS: BLOOD UREA NITROGEN 28 mg/dl (9-20); CALCIUM 8.7 mg/dL (8.4-10.2); GFR AFRICAN-AMERICAN > 60; GFR NON-AFRICAN AMERICAN > 60
[2018-02-17] MEDS: Pantoprazole 40 mg EC Tab PO SCH (08:42)
[2018-02-17] MEDS: Enoxaparin 40 mg Syringe SC SCH (08:42)
--- NOTE | 2018-02-17 10:56 | CP.PCM.HP ---
History of Present Illness - History of Present Illness History of Present Illness: 77 yo male with history of Parkinsonism admitted initially at [facility] on 01/31/2018 because of frequent falls probably secondary to orthostatic hypotension was sent to Acute Rehab in [facility] for therapy and deconditioning. Had UTI secondary to Strep Viridans and was started on IV Ceftriaxone. He was transferred to TCU for continuation of IV antibiotics. Present on Admission - Present on Admission Any Indicators Present on Admission: No History of DVT/PE: No History of Uncontrolled Diabetes: No Urinary Catheter: No Decubitus Ulcer Present: No Review of Systems - Review of Systems All systems: reviewed and no additional remarkable complaints except (aside from those mentioned above, 12 point system review were negative by me) Past Patient History - Tetanus Immunizations Tetanus Immunization: Unknown - Past Medical History & Family History Past Medical History?: Yes - Past Social History Smoking Status: Former Smoker Chewing Tobacco Use: No Cigar Use: No Alcohol: None - CARDIAC Hx Cardiac Disorders: Yes Other/Comment: orthostatic blood pressure - PULMONARY Hx Respiratory Disorders: No - NEUROLOGICAL Hx Parkinson's Disease: Yes - HEENT Hx HEENT Problems: No - RENAL Hx Chronic Kidney Disease: No - ENDOCRINE/METABOLIC Hx Endocrine Disorders: No - HEMATOLOGICAL/ONCOLOGICAL Hx Blood Disorders: No Hx Blood Transfusions: No - INTEGUMENTARY Hx Dermatological Problems: No Other/Comment: With multiple bruises from fall - MUSCULOSKELETAL/RHEUMATOLOGICAL Hx Falls: Yes (20 x last month) Hx Spinal Stenosis: Yes Other/Comment: Lumbosacral radiculopathy secondary to spinal stenosis - GASTROINTESTINAL Hx Gastrointestinal Disorders: No - GENITOURINARY/GYNECOLOGICAL Hx Genitourinary Disorders: Yes Hx Prostate Problems: Yes (BPH) - PSYCHIATRIC Hx Psychophysiologic Disorder: Yes Hx Anxiety: Yes Hx Substance Use: No - SURGICAL HISTORY Hx Abdominal Aortic Aneurysm Repair: Yes (3 stents) Hx Cholecystectomy: Yes Hx Coronary Stent: Yes Other/Comment: lumbosacral spinal surgery with hardware placement. - ANESTHESIA Hx Anesthesia: Yes Hx Anesthesia Reactions: No Meds Allergies/Adverse Reactions: Allergies Allergy/AdvReac Type Severity Reaction Status Date / Time codeine Allergy Severe ANAPHYLAXIS Verified 02/16/18 14:36 omeprazole Allergy Severe ANAPHYLAXIS Verified 02/16/18 14:36 omeprazole magnesium Allergy Severe ANAPHYLAXIS Uncoded 02/16/18 14:36 Physical Exam - Constitutional Appears: No Acute Distress - Head Exam Head Exam: ATRAUMATIC - Eye Exam Eye Exam: absent: Scleral icterus - ENT Exam ENT Exam: Mucous Membranes Moist - Neck Exam Neck exam: Negative for: Meningismus - Respiratory Exam Respiratory Exam: absent: Rales, Rhonchi, Wheezes, Respiratory Distress - Cardiovascular Exam Cardiovascular Exam: REGULAR RHYTHM, +S1, +S2 - GI/Abdominal Exam GI & Abdominal Exam: Soft. absent: Tenderness - Rectal Exam Rectal Exam: Deferred - Neurological Exam Neurological exam: Alert, Oriented x3 - Psychiatric Exam Psychiatric exam: Normal Affect - Skin Skin Exam: Dry, Intact Results - Vital Signs Recent Vital Signs: Last Vital Signs Temp 97.9 F 02/17/18 08:52 Pulse 68 02/17/18 08:52 Resp 20 02/17/18 08:52 BP 119/69 02/17/18 08:52 Pulse Ox 94 L 02/17/18 08:52 - Labs Result Diagrams: 02/17/18 06:30 02/17/18 06:30 Labs: Laboratory Results - last 24 hr 02/17/18 02/17/18 06:30 06:30 WBC 7.4 RBC 3.78 L Hgb 11.2 L Hct 33.3 L MCV 88.1 MCH 29.6 MCHC 33.6 RDW 14.8 H Plt Count 261 Sodium 142 Potassium 3.1 L Chloride 103 Carbon Dioxide 28 Anion Gap 14 BUN 28 H Creatinine 1.1 Est GFR ( Amer) > 60 Est GFR (Non-Af Amer) > 60 Random Glucose 89 Calcium 8.7 Assessment & Plan - Assessment and Plan (Free Text) Assessment: 77 yo male with history of Parkinsonism admitted initially at [facility] on 01/31/2018 because of frequent falls probably secondary to orthostatic hypotension was sent to Acute Rehab in [facility] for therapy and deconditioning. Had UTI secondary to Strep Viridans and was started on IV Ceftriaxone. He was transferred to TCU for continuation of IV antibiotics. 1. Parkinson's Disease continue Sinemet and Amantadine 2. Orthostatic Hypotension continue to have orthostatic hypotension but was asymptomatic continue Florinef 0.2mg PO TID and Midodrine 10mg PO BID 3. CAD continue ASA 4. UTI urine culture: Strep Viridans on Ceftriaxone 1gm IV (6th day) 5. DVT prophylaxis continue Lovenox
[2018-02-17] MEDS ORDERED: Potassium Chloride 20 mEq ER Tab PO ONE (12:15)
[2018-02-17 16:59] LABS: SQUAMOUS EPITHIAL < 1 /hpf (0-5); URINE BILIRUBIN NEGATIVE (NEGATIVE); URINE BLOOD NEGATIVE (NEGATIVE); URINE CLARITY SLIGHTY-CLOUDY (Clear); URINE COLOR AMBER (YELLOW); URINE GLUCOSE (UA) NEG (Normal); URINE LEUKOCYTE ESTERASE NEG Leu/uL (Negative); URINE PROTEIN 100 mg/dL (NEGATIVE); URINE UROBILINOGEN 0.2-1.0 mg/dL (0.2-1.0)
[2018-02-18 07:53] LABS: BLOOD UREA NITROGEN 28 mg/dl (9-20); CALCIUM 8.6 mg/dL (8.4-10.2); GFR AFRICAN-AMERICAN > 60; GFR NON-AFRICAN AMERICAN > 60
[2018-02-18] MEDS: Enoxaparin 40 mg Syringe SC SCH (08:32)
[2018-02-18] MEDS: Pantoprazole 40 mg EC Tab PO SCH (08:34)
[2018-02-18] MEDS: Carbidopa/Levodopa 50/200 CR PO SCH (08:34)
[2018-02-18] MEDS ORDERED: Potassium Chloride 20 mEq ER Tab PO ONE (17:26)
[2018-02-19] MEDS: Carbidopa/Levodopa 50/200 CR PO SCH (06:06)
[2018-02-19 06:31] LABS: BLOOD UREA NITROGEN 25 mg/dl (9-20); CALCIUM 8.9 mg/dL (8.4-10.2); GFR AFRICAN-AMERICAN > 60; GFR NON-AFRICAN AMERICAN > 60
[2018-02-19] MEDS: Enoxaparin 40 mg Syringe SC SCH (08:05)
[2018-02-19] MEDS: Pantoprazole 40 mg EC Tab PO SCH (08:07)
[2018-02-20] MEDS ORDERED: Magnesium Hydroxide Susp 30 ml UD PO PRN (05:44)
[2018-02-20] MEDS: Carbidopa/Levodopa 50/200 CR PO SCH (06:06)
[2018-02-20] MEDS: Enoxaparin 40 mg Syringe SC SCH (08:55)
[2018-02-20] MEDS: Pantoprazole 40 mg EC Tab PO SCH (08:56)
--- NOTE | 2018-02-20 10:29 | CP.PCM.PN ---
Subjective - Date & Time of Evaluation Date of Evaluation: 02/20/18 Time of Evaluation: 10:29 - Subjective Subjective: patient doing well, improving, completed ABX HD stable no complaints Objective - Vital Signs/Intake and Output Vital Signs (last 24 hours): Temp Pulse Resp BP Pulse Ox 97.0 F L 79 20 130/82 93 L 02/20/18 08:19 02/20/18 08:19 02/20/18 08:19 02/20/18 08:19 02/20/18 08:19 - Medications Medications: Current Medications Acetaminophen (Tylenol 325mg Tab) 650 mg PO Q6 PRN PRN Reason: Pain, moderate (4-7) Last Admin: 02/17/18 06:26 Dose: 650 mg Amantadine HCl (Amantadine 100 Mg Cap) 100 mg PO DAILY [facility] Last Admin: 02/20/18 08:53 Dose: 100 mg Aspirin (Aspirin Chewable) 81 mg PO DAILY [facility] Last Admin: 02/20/18 08:53 Dose: 81 mg Carbidopa/Levodopa (Sinemet) 1 tab PO DAILY@1500 [facility] Last Admin: 02/19/18 15:25 Dose: 1 tab Carbidopa/Levodopa (Sinemet) 2 tab PO DAILY@1330 [facility] Last Admin: 02/19/18 12:54 Dose: 2 tab Carbidopa/Levodopa (Sinemet Cr) 1 tab PO DAILY@0700 [facility] Last Admin: 02/20/18 06:06 Dose: 1 tab Docusate Sodium (Colace) 100 mg PO BID [facility] Last Admin: 02/20/18 08:53 Dose: 100 mg Enoxaparin Sodium (Lovenox) 40 mg SC DAILY [facility] PRN Reason: Protocol Last Admin: 02/20/18 08:55 Dose: 40 mg Fludrocortisone Acetate (Florinef) 0.2 mg PO TID [facility] Last Admin: 02/20/18 08:54 Dose: 0.2 mg Lorazepam (Ativan) 1 mg PO HS PRN PRN Reason: Sleep Last Admin: 02/19/18 21:28 Dose: 1 mg Magnesium Hydroxide (Milk Of Magnesia) 30 ml PO DAILY PRN PRN Reason: Constipation Midodrine (Proamatine) 10 mg PO BID [facility] Last Admin: 02/20/18 08:55 Dose: 10 mg Pantoprazole Sodium (Protonix Ec Tab) 40 mg PO DAILY [facility] Last Admin: 02/20/18 08:56 Dose: 40 mg Quetiapine Fumarate (Seroquel) 25 mg PO HS PRN PRN Reason: Agitation - Labs Labs: 02/17/18 06:30 02/19/18 05:45 - Head Exam Additional comments: Vitals Reviewed GEN: WDWN, alert, cooperative HEENT: NCAT, PERRL, EOMI HEART: RRR, +S1S2, NO MRG LUNG: CTAB, NO WRR ABD: soft, NT, ND, No HSM, No masses EXT: normal pedal pulses, normal capillary refill NEURO: awake, alert, no focal deficits SKIN: warm, dry PSYCH: normal mood, normal affect Assessment and Plan - Assessment and Plan (Free Text) Plan: 77 yo male with history of Parkinsonism admitted initially at [facility] on 01/31/2018 because of frequent falls probably secondary to orthostatic hypotension was sent to Acute Rehab in [facility] for therapy and deconditioning. Had UTI secondary to Strep Viridans and was started on IV Ceftriaxone. He was transferred to TCU for continuation of IV antibiotics. 1. Parkinson's Disease continue Sinemet and Amantadine continue PT 2. Orthostatic Hypotension continue to have orthostatic hypotension but was asymptomatic continue Florinef 0.2mg PO TID and Midodrine 10mg PO BID 3. CAD continue ASA 4. UTI urine culture: Strep Viridans on Ceftriaxone 1gm IV COMPLETED 5. DVT prophylaxis continue Lovenox
[2018-02-21] MEDS: Carbidopa/Levodopa 50/200 CR PO SCH (06:00)
[2018-02-21] MEDS: Enoxaparin 40 mg Syringe SC SCH (08:07)
[2018-02-21] MEDS: Pantoprazole 40 mg EC Tab PO SCH (08:09)
[2018-02-22] MEDS: Carbidopa/Levodopa 50/200 CR PO SCH (06:24)
[2018-02-22] MEDS: Pantoprazole 40 mg EC Tab PO SCH (08:32)
[2018-02-22] MEDS: Enoxaparin 40 mg Syringe SC SCH (08:34)
--- NOTE | 2018-02-22 14:29 | CP.PCM.PN ---
Subjective - Date & Time of Evaluation Date of Evaluation: 02/22/18 Time of Evaluation: 10:30 - Subjective Subjective: Patient seen and examined. Still orthostatic but no complaint Objective - Vital Signs/Intake and Output Vital Signs (last 24 hours): Temp Pulse Resp BP Pulse Ox 97.7 F 72 20 140/89 94 L 02/22/18 08:00 02/22/18 08:00 02/22/18 08:00 02/22/18 08:00 02/22/18 08:00 - Medications Medications: Current Medications Acetaminophen (Tylenol 325mg Tab) 650 mg PO Q6 PRN PRN Reason: Pain, moderate (4-7) Last Admin: 02/17/18 06:26 Dose: 650 mg Amantadine HCl (Amantadine 100 Mg Cap) 100 mg PO DAILY [facility] Last Admin: 02/22/18 13:20 Dose: 100 mg Aspirin (Aspirin Chewable) 81 mg PO DAILY [facility] Last Admin: 02/22/18 08:35 Dose: 81 mg Carbidopa/Levodopa (Sinemet) 1 tab PO DAILY@1500 [facility] Last Admin: 02/21/18 16:08 Dose: 1 tab Carbidopa/Levodopa (Sinemet) 2 tab PO DAILY@1330 [facility] Last Admin: 02/22/18 13:31 Dose: 2 tab Carbidopa/Levodopa (Sinemet Cr) 1 tab PO DAILY@0700 [facility] Last Admin: 02/22/18 06:24 Dose: 1 tab Docusate Sodium (Colace) 100 mg PO BID [facility] Last Admin: 02/22/18 08:34 Dose: 100 mg Enoxaparin Sodium (Lovenox) 40 mg SC DAILY [facility] PRN Reason: Protocol Last Admin: 02/22/18 08:34 Dose: 40 mg Fludrocortisone Acetate (Florinef) 0.3 mg PO TID [facility] Last Admin: 02/22/18 13:20 Dose: 0.3 mg Lorazepam (Ativan) 1 mg PO HS PRN PRN Reason: Sleep Last Admin: 02/21/18 22:17 Dose: 1 mg Magnesium Hydroxide (Milk Of Magnesia) 30 ml PO DAILY PRN PRN Reason: Constipation Midodrine (Proamatine) 10 mg PO TID [facility] Last Admin: 02/22/18 13:20 Dose: 10 mg Pantoprazole Sodium (Protonix Ec Tab) 40 mg PO DAILY [facility] Last Admin: 02/22/18 08:32 Dose: 40 mg Quetiapine Fumarate (Seroquel) 25 mg PO HS PRN PRN Reason: Agitation - Labs Labs: 02/17/18 06:30 02/19/18 05:45 - Constitutional Appears: No Acute Distress - Head Exam Head Exam: ATRAUMATIC - Eye Exam Eye Exam: absent: Scleral icterus - ENT Exam ENT Exam: Mucous Membranes Moist - Neck Exam Neck Exam: absent: Meningismus - Respiratory Exam Respiratory Exam: absent: Rales, Rhonchi, Wheezes, Respiratory Distress - Cardiovascular Exam Cardiovascular Exam: REGULAR RHYTHM, +S1, +S2 - GI/Abdominal Exam GI & Abdominal Exam: Soft. absent: Tenderness - Rectal Exam Rectal Exam: Deferred - Extremities Exam Extremities Exam: absent: Calf Tenderness, Pedal Edema - Neurological Exam Neurological Exam: Alert, Oriented x3 - Psychiatric Exam Psychiatric exam: Normal Affect - Skin Skin Exam: Dry, Intact Assessment and Plan - Assessment and Plan (Free Text) Assessment: 77 yo male with history of Parkinsonism admitted initially at [facility] on 01/31/2018 because of frequent falls was sent to Acute Rehab in [facility] for therapy and deconditioning. Had UTI secondary to Strep Viridans and was started on IV Ceftriaxone. He was transferred to TCU for continuation of IV antibiotics and continuation of therapy 1. Parkinson's Disease continue Sinemet and Amantadine continue PT 2. Orthostatic Hypotension continue to have orthostatic hypotension but was asymptomatic continue Florinef 0.3mg PO TID and Midodrine 10mg PO BID 3. CAD continue ASA 4. UTI urine culture: Strep Viridans Ceftriaxone COMPLETED 5. DVT prophylaxis continue Lovenox
[2018-02-23] MEDS: Carbidopa/Levodopa 50/200 CR PO SCH (06:22)
[2018-02-23] MEDS: Pantoprazole 40 mg EC Tab PO SCH (08:57)
[2018-02-23] MEDS: Enoxaparin 40 mg Syringe SC SCH (10:55)
[2018-02-24] MEDS: Carbidopa/Levodopa 50/200 CR PO SCH (06:13)
[2018-02-24] MEDS: Enoxaparin 40 mg Syringe SC SCH (08:59)
[2018-02-24] MEDS: Pantoprazole 40 mg EC Tab PO SCH (09:04)
--- NOTE | 2018-02-24 19:50 | CP.PCM.CON ---
History of Present Illness - History of Present Illness History of Present Illness: Dr Henry PMR consultation on Rafael Hightower, born 1940, who has been admitted to TCU following a stay at acute care rehab. He had significant BP hypotension issues that prohibited him from maximizing his rehabilitation potential and was therefore sent up to the TCU. In addition his has just started chemo treatment for cancer. He has been doing quite well and is ambulating 150' and doing 5 stairs x2 and ambulating around his room with the RW. D/C is set for 02/28/18 Review of Systems - Constitutional Constitutional: absent: Chills - EENT Nose/Mouth/Throat: absent: Nasal Congestion - Cardiovascular Cardiovascular: absent: Chest Pain - Respiratory Respiratory: absent: Hemoptysis, Wheezing - Gastrointestinal Gastrointestinal: absent: Abdominal Pain, Constipation Past Patient History - Tetanus Immunizations Tetanus Immunization: Unknown - Past Medical History & Family History Past Medical History?: Yes - Past Social History Smoking Status: Former Smoker Chewing Tobacco Use: No Cigar Use: No Alcohol: None - CARDIAC Hx Cardiac Disorders: Yes Other/Comment: orthostatic blood pressure - PULMONARY Hx Respiratory Disorders: No - NEUROLOGICAL Hx Parkinson's Disease: Yes - HEENT Hx HEENT Problems: No - RENAL Hx Chronic Kidney Disease: No - ENDOCRINE/METABOLIC Hx Endocrine Disorders: No - HEMATOLOGICAL/ONCOLOGICAL Hx Blood Disorders: No Hx Blood Transfusions: No - INTEGUMENTARY Hx Dermatological Problems: No Other/Comment: With multiple bruises from fall - MUSCULOSKELETAL/RHEUMATOLOGICAL Hx Falls: Yes (20 x last month) Hx Spinal Stenosis: Yes Other/Comment: Lumbosacral radiculopathy secondary to spinal stenosis - GASTROINTESTINAL Hx Gastrointestinal Disorders: No - GENITOURINARY/GYNECOLOGICAL Hx Genitourinary Disorders: Yes Hx Prostate Problems: Yes (BPH) - PSYCHIATRIC Hx Psychophysiologic Disorder: Yes Hx Anxiety: Yes Hx Substance Use: No - SURGICAL HISTORY Hx Abdominal Aortic Aneurysm Repair: Yes (3 stents) Hx Cholecystectomy: Yes Hx Coronary Stent: Yes Other/Comment: lumbosacral spinal surgery with hardware placement. - ANESTHESIA Hx Anesthesia: Yes Hx Anesthesia Reactions: No Meds Allergies/Adverse Reactions: Allergies Allergy/AdvReac Type Severity Reaction Status Date / Time codeine Allergy Severe ANAPHYLAXIS Verified 02/16/18 14:36 omeprazole Allergy Severe ANAPHYLAXIS Verified 02/16/18 14:36 omeprazole magnesium Allergy Severe ANAPHYLAXIS Uncoded 02/16/18 14:36 - Medications Medications: Current Medications Acetaminophen (Tylenol 325mg Tab) 650 mg PO Q6 PRN PRN Reason: Pain, moderate (4-7) Last Admin: 02/17/18 06:26 Dose: 650 mg Amantadine HCl (Amantadine 100 Mg Cap) 100 mg PO DAILY [facility] Last Admin: 02/24/18 08:59 Dose: 100 mg Aspirin (Aspirin Chewable) 81 mg PO DAILY [facility] Last Admin: 02/24/18 08:59 Dose: 81 mg Carbidopa/Levodopa (Sinemet) 1 tab PO DAILY@1500 [facility] Last Admin: 02/24/18 15:09 Dose: 1 tab Carbidopa/Levodopa (Sinemet) 2 tab PO DAILY@1330 [facility] Last Admin: 02/24/18 13:09 Dose: 2 tab Carbidopa/Levodopa (Sinemet Cr) 1 tab PO DAILY@0700 [facility] Last Admin: 02/24/18 06:13 Dose: 1 tab Docusate Sodium (Colace) 100 mg PO BID [facility] Last Admin: 02/24/18 17:46 Dose: 100 mg Enoxaparin Sodium (Lovenox) 40 mg SC DAILY [facility] PRN Reason: Protocol Last Admin: 02/24/18 08:59 Dose: 40 mg Fludrocortisone Acetate (Florinef) 0.3 mg PO QID [facility] Last Admin: 02/24/18 17:46 Dose: 0.3 mg Lorazepam (Ativan) 1 mg PO HS PRN PRN Reason: Sleep Last Admin: 02/23/18 21:58 Dose: 1 mg Magnesium Hydroxide (Milk Of Magnesia) 30 ml PO DAILY PRN PRN Reason: Constipation Midodrine (Proamatine) 10 mg PO TID [facility] Last Admin: 02/24/18 17:46 Dose: 10 mg Pantoprazole Sodium (Protonix Ec Tab) 40 mg PO DAILY [facility] Last Admin: 02/24/18 09:04 Dose: 40 mg Quetiapine Fumarate (Seroquel) 25 mg PO HS PRN PRN Reason: Agitation Physical Exam - Constitutional Appears: Non-toxic - Head Exam Head Exam: ATRAUMATIC, NORMAL INSPECTION, NORMOCEPHALIC - Eye Exam Eye Exam: EOMI - ENT Exam ENT Exam: Mucous Membranes Moist - Respiratory Exam Respiratory Exam: NORMAL BREATHING PATTERN - Cardiovascular Exam Cardiovascular Exam: REGULAR RHYTHM - GI/Abdominal Exam GI & Abdominal Exam: absent: Distended, Firm - Extremities Exam Extremities exam: Negative for: calf tenderness Results - Vital Signs Recent Vital Signs: Last Vital Signs Temp 97.5 F L 02/24/18 15:42 Pulse 60 02/24/18 15:42 Resp 20 02/24/18 15:42 BP 140/88 02/24/18 15:42 Pulse Ox 93 L 02/24/18 15:42 - Labs Result Diagrams: 02/17/18 06:30 02/19/18 05:45 Assessment & Plan - Assessment and Plan (Free Text) Assessment: PT/OT to continue to help increase functional independence Pain: controlled Vascular: no evidence of DVT GI: No evidence of constipation or diarrhea Patient continues to be an excellent TCU rehabilitation candidate and will have continued focused PT, OT and recreational therapy to help facilitate a safe and appropriate d/c plan continue current care
[2018-02-25] MEDS: Carbidopa/Levodopa 50/200 CR PO SCH (06:12)
[2018-02-25] MEDS: Enoxaparin 40 mg Syringe SC SCH (08:28)
[2018-02-25] MEDS: Pantoprazole 40 mg EC Tab PO SCH (08:32)
[2018-02-26] MEDS: Carbidopa/Levodopa 50/200 CR PO SCH (06:03)
[2018-02-26] MEDS: Enoxaparin 40 mg Syringe SC SCH (08:41)
[2018-02-26] MEDS: Pantoprazole 40 mg EC Tab PO SCH (08:42)
[2018-02-26 17:18] VITALS: TEMP 97.9
[2018-02-26 21:41] VITALS: BP 155/86; PULSE 75; RESP 18; O2SAT 98
[2018-02-27] MEDS: Carbidopa/Levodopa 50/200 CR PO SCH (07:58)
[2018-02-27] MEDS: Enoxaparin 40 mg Syringe SC SCH (08:46)
[2018-02-27] MEDS: Pantoprazole 40 mg EC Tab PO SCH (08:46)
--- NOTE | 2018-02-27 10:32 | CP.PCM.DIS ---
Provider - Provider Date of Admission: 02/16/18 14:36 Attending physician: Tc Huber DO Consults: physiatry consult Time Spent in preparation of Discharge (in minutes): 15 Hospital Course - Lab Results Lab Results: Micro Results 02/17/18 16:20 Urine,Clean Catch Urine Culture - Final No Growth (<1,000 CFU/ML) Most Recent Lab Values WBC 7.4 K/uL (4.8-10.8) 02/17/18 06:30 RBC 3.78 Mil/uL (4.40-5.90) L 02/17/18 06:30 Hgb 11.2 g/dL (12.0-18.0) L 02/17/18 06:30 Hct 33.3 % (35.0-51.0) L 02/17/18 06:30 MCV 88.1 fl (80.0-94.0) 02/17/18 06:30 MCH 29.6 pg (27.0-31.0) 02/17/18 06:30 MCHC 33.6 g/dL (33.0-37.0) 02/17/18 06:30 RDW 14.8 % (11.5-14.5) H 02/17/18 06:30 Plt Count 261 K/uL (130-400) 02/17/18 06:30 Sodium 143 mmol/l (132-148) 02/19/18 05:45 Potassium 3.5 MMOL/L (3.6-5.0) L 02/19/18 05:45 Chloride 103 mmol/L (98-107) 02/19/18 05:45 Carbon Dioxide 31 mmol/L (22-30) H 02/19/18 05:45 Anion Gap 13 (10-20) 02/19/18 05:45 BUN 25 mg/dl (9-20) H 02/19/18 05:45 Creatinine 1.0 mg/dl (0.8-1.5) 02/19/18 05:45 Est GFR ( Amer) > 60 02/19/18 05:45 Est GFR (Non-Af Amer) > 60 02/19/18 05:45 Random Glucose 89 mg/dL (75-110) 02/19/18 05:45 Calcium 8.9 mg/dL (8.4-10.2) 02/19/18 05:45 Urine Color Sarah (YELLOW) 02/17/18 16:20 Urine Clarity Slighty-cloudy (Clear) 02/17/18 16:20 Urine pH 5.0 (5.0-8.0) 02/17/18 16:20 Ur Specific [place] 1.032 (1.003-1.030) H 02/17/18 16:20 Urine Protein 100 mg/dL (NEGATIVE) 02/17/18 16:20 Urine Glucose (UA) Neg mg/dL (Normal) 02/17/18 16:20 Urine Ketones Trace mg/dL (NEGATIVE) 02/17/18 16:20 Urine Blood Negative (NEGATIVE) 02/17/18 16:20 Urine Nitrate Negative (NEGATIVE) 02/17/18 16:20 Urine Bilirubin Negative (NEGATIVE) 02/17/18 16:20 Urine Urobilinogen 0.2-1.0 mg/dL (0.2-1.0) 02/17/18 16:20 Ur Leukocyte Esterase Neg Zoila/uL (Negative) 02/17/18 16:20 Ur Squamous Epith Cells < 1 /hpf (0-5) 02/17/18 16:20 Hyaline Casts 3-5 /hpf (0-2) H 02/17/18 16:20 - Hospital Course Hospital Course: 77 yo male with history of Parkinsonism admitted initially at [facility] on 01/31/2018 because of frequent falls was sent to Acute Rehab in [facility] for therapy and deconditioning. Had UTI secondary to Strep Viridans and was started on IV Ceftriaxone. He was transferred to TCU for continuation of IV antibiotics and continuation of therapy At present doing well. Will be discharged home .Follow up with PMD and home PT 1. Parkinson's Disease continue Sinemet and Amantadine continue PT at home 2. Orthostatic Hypotension continue Florinef 0.3mg PO TID and Midodrine 10mg PO BID 3. CAD continue ASA 4. UTI urine culture: Strep Viridans Ceftriaxone COMPLETED Discharge Exam - Head Exam Head Exam: ATRAUMATIC, NORMAL INSPECTION, NORMOCEPHALIC - Eye Exam Eye Exam: EOMI, PERRL Pupil Exam: NORMAL ACCOMODATION - ENT Exam ENT Exam: Normal Exam - Neck Exam Neck exam: Full Rom, Normal Inspection - Respiratory Exam Respiratory Exam: Clear to PA & Lateral, NORMAL BREATHING PATTERN. absent: Rhonchi, Wheezes - Cardiovascular Exam Cardiovascular Exam: REGULAR RHYTHM, RRR, +S1, +S2. absent: JVD - GI/Abdominal Exam GI & Abdominal Exam: Normal Bowel Sounds, Soft. absent: Distended, Guarding, Rebound, Tenderness - Rectal Exam Rectal Exam: Deferred - Extremities Exam Extremities exam: normal capillary refill, pedal pulses present - Back Exam Back exam: NORMAL INSPECTION - Neurological Exam Neurological exam: Alert, CN II-XII Intact Additional comments: tremors to upper extremities - Psychiatric Exam Psychiatric exam: Flat Affect - Skin Skin Exam: Dry, Warm Discharge Plan - Discharge Medications Prescriptions: Amantadine [Amantadine 100 mg Cap] 100 mg PO DAILY #30 cap Aspirin [Aspirin Chewable] 81 mg PO DAILY #30 chew Carbidopa/Levodopa 25/100 mg [Sinemet] 2 tab PO DAILY@1330 #60 tab Carbidopa/Levodopa 25/100 mg [Sinemet] 1 tab PO DAILY@1500 #30 tab Carbidopa/Levodopa 50/200 CR [Sinemet CR] 1 tab PO DAILY@0700 #30 tab Docusate [Colace] 100 mg PO BID #60 cap Fludrocortisone [Florinef] 0.3 mg PO QID #120 tab Fludrocortisone [Florinef] 0.3 mg PO QID #120 tab LORazepam [Ativan] 1 mg PO HS PRN #30 tab PRN Reason: Sleep Midodrine [Proamatine] 10 mg PO BID #90 tab Pantoprazole [Protonix EC Tab] 40 mg PO DAILY #30 ect QUEtiapine [Seroquel] 25 mg PO HS PRN #30 tab PRN Reason: Agitation - Follow Up Plan Condition: GOOD Disposition: HOME/ ROUTINE Patient education suggested?: Yes Instructions: Medicines for Parkinson Disease, Preventing Falls, Parkinson Disease (DC) Additional Instructions: [facility] VISITING NURSE WILL FOLLOW AT HOME FOR PHYSICAL AND OCCUPATIONAL THERAPY. [facility] VISITING NURSE [phone] PLEASE ADVISE TO RISE SLOWLY FROM SITTING OR LYING POSITION Referrals: Boaz Huggins MD [Staff Provider] - Sis Juares MD [Medical Doctor] - Rudy Henry MD [Staff Provider] -
== END 2018-02-27 12:53 | disposition home health service (06) | DRG 690 ==
LOC: H.TCU 14:36
PROVIDERS: ADMIT Internal Medicine; ATTEND Internal Medicine
PROC: 3E03329 Introduction of Other Anti-infective into Peripheral Vein, Percutaneous Approach (ICD-10-PCS; principal; 2018-02-16)
PROC: F08Z4FZ Home Management Treatment using Assistive, Adaptive, Supportive or Protective Equipment (ICD-10-PCS; 2018-02-16)
PROC: F07M6FZ Therapeutic Exercise Treatment of Musculoskeletal System - Whole Body using Assistive, Adaptive, Supportive or Protective Equipment (ICD-10-PCS; 2018-02-16)
DX: N39.0 Urinary tract infection, site not specified (principal); G20 Parkinson's disease; I25.10 Atherosclerotic heart disease of native coronary artery without angina pectoris; I95.1 Orthostatic hypotension; M48.00 Spinal stenosis, site unspecified; M54.17 Radiculopathy, lumbosacral region; B95.5 Unspecified streptococcus as the cause of diseases classified elsewhere; N40.0 Benign prostatic hyperplasia without lower urinary tract symptoms; Z86.79 Personal history of other diseases of the circulatory system; Z87.891 Personal history of nicotine dependence; Z90.49 Acquired absence of other specified parts of digestive tract; Z95.5 Presence of coronary angioplasty implant and graft; F41.9 Anxiety disorder, unspecified; F45.9 Somatoform disorder, unspecified; R29.6 Repeated falls